=== PATIENT | female | born 1940 | race Hispanic/Latino ===

== ENCOUNTER 2017-12-12 02:30 | Emergency (ER) | payer MEDICARE ==
[~2017-12-12] VITALS: Ht 149.9 cm; Wt 79.8 kg
[~2017-12-12 02:30] MED LIST: CARAFATE1 GM; CELEBREX200 MG; LIPITOR; MEDROL2 MG; NEXIUM; SYNTHROID; Z.0.ATIVAN0.5 MG PO; Z.0.LIPITOR20 MG PO; Z.0.NEXIUM40 MG PO; Z.0.SYNTHROID75 MCG PO; Z.0.ZETIA10 MG PO; ZETIA
[2017-12-12] MEDS ORDERED: FAMOTIDINE 20 MG/2 ML VIAL IV STA (02:42)
[2017-12-12] MEDS ORDERED: DIPHENHYDRAMINE HCL INJ 50 MG/ML VIAL IV ONE (02:45)
[2017-12-12] MEDS ORDERED: METHYLPREDNISOLONE SOD SUCC 125 MG/2ML VIAL IV ONE (02:45)
[2017-12-12 04:44] VITALS: BP 128/74
== END 2017-12-12 05:04 | disposition home or self-care (01) ==
LOC: ER 02:30
DX: L50.0 Allergic urticaria (principal); T37.0X4A Poisoning by sulfonamides, undetermined, initial encounter; K21.9 Gastro-esophageal reflux disease without esophagitis; E03.9 Hypothyroidism, unspecified; E78.5 Hyperlipidemia, unspecified
CPT/HCPCS: 96374; 96376; 99283; J1200; J2930

== ENCOUNTER 2018-01-01 14:22 | Inpatient (IN) | payer MEDICARE ==
[~2018-01-01] VITALS: Ht 149.9 cm; Wt 73.5 kg
--- OUTSIDE RECORDS SUMMARY | 2018-01-01 14:25 | XMS REPORT ---
Author [facility] Address Unknown Phone Unavailable Care Team Providers Care Clinical Quality Rn Name Role Phone CESAR HERNANDEZ Unavailable Unavailable Problems This patient has no known problems. Allergies, Adverse Reactions, Alerts This patient has no known allergies or adverse reactions. Medications This patient has no known medications. Results Test Description Test Time Test Comments Text Results Atomic Results Result Comments CHEST 2 VIEWS [facility] [address] [address] Patient Name: DANNIELLE PALMER MR #: [id number] : 1940 Age/Sex: 77/F Req #: [id number] Adm Physician: Ordered by: CESAR HERNANDEZ MD Report #: [id number] Location: [facility] Room/Bed: Procedure: [id number] 0050 DX/CHEST 2 VIEWS Exam Date: 10/23/17 Exam Time : 1220 REPORT STATUS: Signed PROCEDURE: Frontal and lateral views of the chest. COMPARISON: Chest x-ray of 04/05/2015. INDICATIONS: BRONCHITIS FINDINGS: Lines/tubes: None. Lungs: The lungs are well inflated and clear. Mild bilateral peribronchial cuffing. There is no evidence of pneumonia or pulmonary edema. Pleura: There is no pleural effusion or pneumothorax. Heart and mediastinum: The heart and the mediastinum are normal. Atherosclerotic calcifications in the aorta. Bones: No acute bony abnormality. Stable heterotopic bone formation around the right glenohumeral joint, likely from previous right humeral head fracture deformity. IMPRESSION: Mild bilateral peribronchial cuffing, which can be seen in viral etiology or reactive airway. Dictated by: Jessica Cabral M.D. on 10/23/2017 at 13:03 Electronically approved by: Jessica Cabral M.D. on 10/23/2017 at 13:03 Dictated By: JESSICA CABRAL MD 1303 Transcribed By: CHANTELLE on 10/23/17 1303 COPY TO: CESAR HERNANDEZ MD
[2018-01-01] MEDS ORDERED: CEFTRIAXONE SOD 1 GM VIAL IV ONE (15:00)
[2018-01-01] MEDS ORDERED: ONDANSETRON HCL INJ 2 MG/ML VIAL IV STA (15:00)
[2018-01-01] MEDS ORDERED: SODIUM CHLORIDE 0.9% 500ML 500 ML IV STA (15:00)
[2018-01-01] MEDS ORDERED: MORPHINE SULFATE 4 MG/ML SYR IV STA (15:00)
[2018-01-01] MEDS ORDERED: IBUPROFEN 600 MG TAB PO STA (15:02)
[2018-01-01] MEDS ORDERED: IBUPROFEN 600 MG TAB ONE (15:09)
[2018-01-01 15:13] LABS: HEMOGLOBIN 13.4 g/dL (12.0-16.0); LYMPHOCYTES # (AUTO) 0.8 (1.0-3.2); MEAN CORPUSCULAR HEMOGLOBIN 32.4 pg (28-32); MEAN CORPUSCULAR HGB CONC 33.5 g/dL (31-35); MEAN CORPUSCULAR VOLUME 96.6 fL (81-99); MONOCYTES # (AUTO) 0.9 (0.2-0.8); MONOCYTES % 15.4 % (4.4-11.3); NEUTROPHILS # (AUTO) 4.2 (2.1-6.9); NEUTROPHILS % 70.4 % (38.7-80.0); PLATELET COUNT 156 x10e3/uL (140-360); RED BLOOD COUNT 4.14 x10e6/uL (3.6-5.1)
[2018-01-01 15:26] LABS: ALBUMIN 3.1 g/dL (3.5-5.0); ALBUMIN/GLOBULIN RATIO 0.9 (0.8-2.0); ANION GAP 16.5 mmol/L (8-16); CALCIUM 7.9 mg/dL (8.4-10.2); CREATININE, SERUM 2.24 mg/dL (0.57-1.11); POTASSIUM 3.5 mmol/L (3.5-5.1)
[2018-01-01 15:32] LABS: CREATINE KINASE MB 2.7 ng/mL (0-5.0)
--- NOTE | 2018-01-01 16:06 | Diagnostic Imaging Report ---
PROCEDURE: CT ABDOMEN AND PELVIS WITHOUT CONTRAST TECHNIQUE: The abdomen and pelvis were scanned utilizing a multidetector helical scanner from the diaphragm to the lesser trochanter after the oral administration of water. No IV contrast was administered per renal stone protocol Coronal and sagittal multiplanar reformations were obtained. COMPARISON: None. INDICATIONS: LEFT FLANK PAIN FINDINGS: ABSENCE OF INTRAVENOUS CONTRAST DECREASES SENSITIVITY FOR DETECTION OF FOCAL LESIONS AND VASCULAR PATHOLOGY. LOWER THORAX: Mild dependent atelectasis. HEPATOBILIARY: Hepatic steatosis. No focal lesions. No biliary ductal dilation. Layering hyperdensity in the dependent portion of the gallbladder lumen likely represents a combination of tiny gallstones and sludge. No wall thickening or pericholecystic fluid. SPLEEN: No splenomegaly. PANCREAS: No focal masses or ductal dilatation. Fatty replacement. ADRENALS: No adrenal nodules. KIDNEYS/URETERS: 0.9 x 0.7 x 0.9 cm calculus in the left renal pelvis, with mild peripelvic stranding, however, no hydronephrosis or hydroureter. No other renal or any ureteral calculi. No renal contour abnormalities. PELVIC ORGANS/BLADDER: Bladder is unremarkable. No bladder calculi. Uterus is unremarkable. No adnexal masses. PERITONEUM / RETROPERITONEUM: No free air or fluid. LYMPH NODES: No lymphadenopathy. VESSELS: Atherosclerotic calcification of the abdominal aorta and iliac vessels. GI TRACT: No dilation or obstruction. Descending and sigmoid colon diverticulosis, without diverticulitis. Appendix is well identified, and normal in caliber. BONES AND SOFT TISSUES: No aggressive lytic lesion. Moderate multilevel degenerative disc changes in the lower lumbosacral spine, worse at L3-L4, and L4-L5. 3.7 x 4.8 x 4.0 cm fat-containing umbilical hernia. IMPRESSION: 1. 0.9 cm calculus in the left renal pelvis, with mild peripelvic stranding, however, no hydronephrosis or hydroureter. No other renal or any ureteral calculi. No bladder calculi. 2. Hepatic steatosis. 3. Findings in the gallbladder likely represent a combination of tiny gallstones and sludge. No CT evidence of cholecystitis. 4. Descending and sigmoid colon diverticulosis, without diverticulitis. Kushal Lr M.D. Dictated by: Kushal Lr M.D. on 01/01/2018 at 16:06 Electronically approved by: Kushal Lr M.D. on 01/01/2018 at 16:06
[2018-01-01 18:23] LABS: BILIRUBIN,URINE 1+ (NEGATIVE); CLARITY,URINE HAZY (CLEAR); COLOR,URINE YELLOW (YELLOW); KETONES,URINE TRACE (NEGATIVE); LEUKOCYTE ESTERASE ,URINE 2+ (NEGATIVE); NITRITE,URINE NEGATIVE (NEGATIVE); PROTEIN,URINE DIPSTICK 1+ (NEGATIVE); URINE UROBILINOGEN 0.2 mg/dL (0.2 - 1)
[2018-01-01 18:36] LABS: EPITHELIAL CELLS,URINE FEW /LPF
[2018-01-01] MEDS ORDERED: ONDANSETRON HCL INJ 2 MG/ML VIAL IV PRN (18:45)
[2018-01-01] MEDS ORDERED: LISINOPRIL2.5 MG PO (18:49)
[2018-01-01] MEDS: CEFTRIAXONE SOD 1 GM VIAL IV SCH (19:06)
[2018-01-01] MEDS: SODIUM CHLORIDE 0.9% 1000ML 1,000 ML IV SCH (19:06)
[2018-01-01] MEDS: ACETAMINOPHEN 325 MG TAB PO PRN (20:00)
[2018-01-01 21:14] VITALS: BP 107/51
[2018-01-01 22:21] VITALS: BP 107/51
[2018-01-01] MEDS ORDERED: PNEUMOCOCCAL VACCINE POLYVALENT 23 MCG/0.5 ML VIAL IM ONE (23:00)
[2018-01-01] MEDS ORDERED: INFLUENZA VIRUS VAC SPLIT INJ 0.5 ML SYR IM ONE (23:00)
[2018-01-02] VITALS (7 sets, daily range): BP systolic 102–146; BP diastolic 53–69
[2018-01-02] MEDS: SODIUM CHLORIDE 0.9% 1000ML 1,000 ML IV SCH ×3 (03:30→21:10)
[2018-01-02] MEDS ORDERED: ADVAIR 250-501 EACH (04:53)
[2018-01-02] MEDS ORDERED: SALMETEROL/FLUTICASONE 250/50 INH SCH (05:15)
[2018-01-02 06:02] LABS: EOSINOPHILS % 0.2 % (0.0-6.0); HEMATOCRIT 37.2 % (34.2-44.1); HEMOGLOBIN 12.3 g/dL (12.0-16.0); LYMPHOCYTES # (AUTO) 1.3 (1.0-3.2); LYMPHOCYTES % 29.5 % (18.0-39.1); MEAN CORPUSCULAR HEMOGLOBIN 32.1 pg (28-32); MEAN CORPUSCULAR HGB CONC 33.1 g/dL (31-35); MEAN CORPUSCULAR VOLUME 97.1 fL (81-99); MONOCYTES # (AUTO) 0.7 (0.2-0.8); MONOCYTES % 14.3 % (4.4-11.3); NEUTROPHILS # (AUTO) 2.5 (2.1-6.9); NEUTROPHILS % 55.8 % (38.7-80.0); PLATELET COUNT 143 x10e3/uL (140-360); RED BLOOD COUNT 3.83 x10e6/uL (3.6-5.1); RED CELL DISTRIBUTION WIDTH 12.9 % (11.7-14.4)
[2018-01-02] MEDS: LEVOTHYROXINE SODIUM 75 MCG TAB PO SCH (06:09)
[2018-01-02 06:23] LABS: ALBUMIN 2.6 g/dL (3.5-5.0); ALBUMIN/GLOBULIN RATIO 1.1 (0.8-2.0); ANION GAP 14.6 mmol/L (8-16); CALCIUM 7.4 mg/dL (8.4-10.2); CREATININE, SERUM 2.09 mg/dL (0.57-1.11); POTASSIUM 3.6 mmol/L (3.5-5.1)
--- NOTE | 2018-01-02 06:36 | Diagnostic Imaging Report ---
CHEST SINGLE (PORTABLE), 01/02/2018 5:04 AM Technique: CHEST SINGLE (PORTABLE) Comparison: None available. Clinical history: Wheezing Findings: Heart/mediastinum: Normal for portable lordotic technique. Lungs/pleural spaces: No consolidation or edema. No effusion or pneumothorax. Bones: Chronic appearing deformity of the proximal right humerus. Impression: 1. Lines/Tubes: None 2. No acute abnormality. Signed by: Dr Christi Rothman MD on 01/02/2018 6:33 AM
[2018-01-02 06:39] LABS: CREATINE KINASE MB 6.4 ng/mL (0-5.0)
[2018-01-02] MEDS: ALBUTEROL/IPRATROPIUM 3 ML NEB NEB SCH ×5 (07:18→23:17)
[2018-01-02] MEDS: SUCRALFATE 1 GM TAB PO SCH ×4 (07:30→21:10)
[2018-01-02] MEDS: PANTOPRAZOLE SOD 40 MG TABEC PO SCH (07:30)
[2018-01-02] MEDS ORDERED: ESOMEPRAZOLE MAG TRIHYDRATE PO SCH (09:00)
[2018-01-02] MEDS ORDERED: NON-FORMULARY MEDICATION (Esomeprazole Mag Trihydrate (Nexium) 40 MG) PO SCH (09:00)
[2018-01-02] MEDS: LISINOPRIL 2.5 MG TAB PO SCH (09:00)
[2018-01-02] MEDS: SALMETEROL/FLUTICASONE 250/50 INH SCH ×2 (09:00→17:00)
[2018-01-02] MEDS ORDERED: DEXAMETHASONE SOD PHOS INJ 4 MG/ML VIAL ONE (13:33)
[2018-01-02] MEDS ORDERED: PROPOFOL IV EMULSION 10 MG/ML 20 ML VIAL ONE (13:33)
[2018-01-02] MEDS ORDERED: ONDANSETRON HCL INJ 2 MG/ML VIAL ONE (13:33)
[2018-01-02] MEDS ORDERED: LIDOCAINE HCL 2% LOCAL INJ 5 ML SDV VIAL INJ ONE (13:33)
[2018-01-02] MEDS ORDERED: SEVOFLURANE INHAL SOLN 250 ML PEN BTL ONE (13:33)
[2018-01-02 14:16] LABS: CREATINE KINASE MB 4.9 ng/mL (0-5.0)
[2018-01-02] MEDS ORDERED: FENTANYL CITRATE/PF 100MCG/2 ML INJ ONE (14:43)
[2018-01-02] MEDS ORDERED: ATORVASTATIN 20 MG TAB PO SCH (21:00)
[2018-01-02] MEDS: CEFTRIAXONE SOD 1 GM VIAL IV SCH (21:10)
[2018-01-02] MEDS: ACETAMINOPHEN 325 MG TAB PO PRN (21:23)
[2018-01-03 00:40] VITALS: BP 115/59
[2018-01-03] MEDS: ALBUTEROL/IPRATROPIUM 3 ML NEB NEB SCH ×2 (02:23→07:00)
[2018-01-03] MEDS: SODIUM CHLORIDE 0.9% 1000ML 1,000 ML IV SCH (04:46)
[2018-01-03] MEDS: LEVOTHYROXINE SODIUM 75 MCG TAB PO SCH (04:47)
[2018-01-03 05:19] VITALS: BP 118/60
[2018-01-03 06:34] LABS: HEMATOCRIT 33.7 % (34.2-44.1); HEMOGLOBIN 11.3 g/dL (12.0-16.0); LYMPHOCYTES # (AUTO) 0.5 (1.0-3.2); LYMPHOCYTES % 13.6 % (18.0-39.1); MEAN CORPUSCULAR HEMOGLOBIN 32.7 pg (28-32); MEAN CORPUSCULAR HGB CONC 33.5 g/dL (31-35); MEAN CORPUSCULAR VOLUME 97.4 fL (81-99); MONOCYTES # (AUTO) 0.3 (0.2-0.8); MONOCYTES % 8.7 % (4.4-11.3); NEUTROPHILS # (AUTO) 2.7 (2.1-6.9); NEUTROPHILS % 77.4 % (38.7-80.0); PLATELET COUNT 129 x10e3/uL (140-360); RED BLOOD COUNT 3.46 x10e6/uL (3.6-5.1); RED CELL DISTRIBUTION WIDTH 13.2 % (11.7-14.4)
[2018-01-03 06:59] LABS: ANION GAP 15.5 mmol/L (8-16); CALCIUM 7.7 mg/dL (8.4-10.2); CREATININE, SERUM 1.03 mg/dL (0.57-1.11); POTASSIUM 3.5 mmol/L (3.5-5.1)
[2018-01-03] MEDS: SUCRALFATE 1 GM TAB PO SCH ×2 (07:45→11:12)
[2018-01-03] MEDS: PANTOPRAZOLE SOD 40 MG TABEC PO SCH (07:45)
[2018-01-03 08:00] VITALS: BP 160/74
[2018-01-03] MEDS: LISINOPRIL 2.5 MG TAB PO SCH (08:30)
[2018-01-03] MEDS: ACETAMINOPHEN 325 MG TAB PO PRN (08:41)
[2018-01-03] MEDS ORDERED: PHENAZOPYRIDINE HCL 100 MG TAB PO SCH (09:00)
[2018-01-03] MEDS ORDERED: TYLENOL WITH C1 EACH PO ×2 (12:03→12:05)
[2018-01-03] MEDS ORDERED: CEFTIN250 MG/5 M (12:08)
[2018-01-03] MEDS ORDERED: CEFUROXIME250 MG PO (12:09)
[2018-01-30] MEDS ORDERED: TYLENOL WITH C1 EACH PO (07:44)
--- NOTE | 2018-02-18 06:54 | Discharge Summary ---
DISCHARGE DIAGNOSES 1. Urinary tract infection. 2. Left renal kidney stone. 3. Chronic kidney disease, stage 3. 4. Hypothyroidism. HISTORY OF PRESENT ILLNESS AND HOSPITAL COURSE: Patient is a lady who presented with left leg pain. Was found have a UTI and a large kidney stone of about 8 mm with some hydronephrosis. She was brought in and seen by Dr. Cunningham who performed a left stent without any complications. Did significantly better after the stent. At the time of discharge, she was able to be discharged home with p.o. antibiotics and follow up with him in approximately 2 weeks. Please see hospital chart for full details. TL PALENCIA MD Job#: [id number] RI
--- NOTE | 2018-03-08 23:41 | Operative Report ---
DATE OF PROCEDURE: January 02, 2018 PREOPERATIVE DIAGNOSES 1. Left hydronephrosis due to stone. 2. Urinary tract infection. 3. Microscopic hematuria. 4. Mixed-type urinary incontinence. POSTOPERATIVE DIAGNOSES 1. Left hydronephrosis due to stone. 2. Urinary tract infection. 3. Microscopic hematuria. 4. Mixed-type urinary incontinence. 5. Grade-2 cystocele. 6. Severe grade-4 rectocele. 7. Atrophic vaginitis. OPERATIONS PERFORMED 1. Cystourethroscopy with bilateral ureteral catheterization and retrograde ureteropyelography (separate procedure performed for urinary tract and microscopic hematuria). 2. Interpretation of retrograde ureteropyelography. 3. Supervision of fluoroscopy. No radiologist present. 4. Pelvic examination under anesthesia. ANESTHESIA: General. COMPLICATIONS: None. CLINICAL SUMMARY: Please refer to consultation dictation from the same date. OPERATIVE PROCEDURE IN DETAIL: Informed consent was verified. Laquita Sinclair was properly identified, taken to the operating room, placed on the cystoscopy table in the supine position. Anesthesia was uneventfully begun. The patient was then carefully, gently repositioned in the dorsal lithotomy position with all pressure points well padded. Her genitalia were prepared and draped in usual sterile fashion. A 22.5-Icelandic cystoscope sheath with obturator in place was atraumatically inserted in patient's urethra and the bladder was drained. Panendoscopy of the bladder revealed no suspicious mucosal lesions, no trabeculations were noted. There were no tumors, no stones, no diverticula. Normally positioned and configured ureteral orifices were identified. A ureteral catheter was used to cannulate the right ureter and retrograde ureteropyelography were performed. It was then inserted in the left ureter and retrograde ureteropyelography was performed. With cystoscopic and fluoroscopic guidance, the left-sided indwelling ureteral stent was then placed. It was coiled in patient's kidney, as well as patient's bladder. The retaining suture was cut short. Interpretation of retrograde ureteropyelography: Contrast was instilled in retrograde fashion bilaterally. The right kidney appeared small, but it was not hydronephrotic. Calices were sharp and delicate. There were no filling defect. There were no stones. Unobstructed drainage was observed fluoroscopically. The left side exhibited filling defect that corresponded to the stone noted on CT. There was hydronephrosis with caliceal blunting. The stent was in good position, coiled in the patient's renal pelvis, as well as patient's bladder at the end of the case. The bladder was noted to have a cystocele with the bladder descent below the symphysis pubis. The patient's bladder was then drained. The cystoscope was withdrawn. Pelvic examination under anesthesia revealed atrophic vaginitis with at least a grade-2 cystocele. There was a severe grade-4 rectocele. No abnormal pelvic masses could be appreciated and there were no obvious mucosal lesions. The patient was then uneventfully reversed from anesthesia and taken to recovery room in stable condition. There were no complications to the procedure. She tolerated the procedure well. Plans will be to follow her during her hospital course and once she is well and completed a long course of antibiotics, to bring her back to the operating room for the next step of stone management, specifically a left ESWL. Job#: [id number]
--- NOTE | 2018-03-09 03:21 | Consultation ---
DATE OF CONSULTATION: January 02, 2018 UNINTELLIGIBLE DICTATION ON MULTIPLE PORTIONS OF THE REPORT UROLOGY CONSULTATION REASON FOR CONSULTATION: Renal colic. HISTORY OF PRESENT ILLNESS: Laquita Sinclair is a 77-year-old woman, who presented to the emergency room with a stone, left renal colic, and left pyelonephritis. Urological consultation was sought for the management. Patient presented to the emergency room with pain. She also reports stress and urge-type urinary incontinence. She also has documented urinary tract infection symptomatology findings. to the operating room for ureteral stenting. PAST MEDICAL AND SURGICAL HISTORY 1. CKD. 2. Hypothyroidism. ALLERGIES: BACTRIM. SOCIAL HISTORY: Patient denies smoking, alcohol, drug use. FAMILY HISTORY: Significant for hypertension. REVIEW OF SYSTEMS: As discussed above in the history of present illness and past medical history, otherwise negative for all systems. PHYSICAL EXAMINATION GENERAL: 77-year-old woman, lying in bed, in no acute distress. VITAL SIGNS: She is currently afebrile. Vital signs are currently stable. She had a temperature of 102.2 upon presentation. ABDOMEN: Soft, nondistended. It is tender in left flank. Without costovertebral angle tenderness. Kidneys are not palpable without hepatosplenomegaly or obvious evidence of hernia. For the remaining physical examination systems, please refer to the admission history and physical on the chart. LABORATORY STUDIES: White blood cell count is 4540, hemoglobin 12.3, platelets are . Creatinine 2.09, calcium was low . Urinalysis negative for , 600 WBCs. ASSESSMENT 1. Left renal colic. 2. Left pyelonephritis. 3. Urinary tract infection. 4. Left ureterolithiasis. 5. History of urinary incontinence. 6. Left hydronephrosis. 7. Leukopenia. 8. Hypocalcemia. 9. Presented with acute renal failure. 10. Microscopic hematuria. PLAN: I posted the patient emergently for cystoscopy and placement of left ureteral stent. Thank you very much for involving us in the care of your patient. We will be happy to follow her along with you, as well as an outpatient. Job#: [id number] CQ
== END 2018-01-03 12:45 | disposition home or self-care (01) | DRG 690 ==
LOC: ER 14:22 → MED/SURG2 18:36
PROVIDERS: ADMIT Internal Medicine; ATTEND Internal Medicine
PROC: BT1FZZZ Fluoroscopy of Left Kidney, Ureter and Bladder (ICD-10-PCS; 2018-01-02)
PROC: 0T778DZ Dilation of Left Ureter with Intraluminal Device, Via Natural or Artificial Opening Endoscopic (ICD-10-PCS; principal; 2018-01-02 15:00)
DX: N13.6 Pyonephrosis (principal); N18.3 Chronic kidney disease, stage 3 (moderate); I12.9 Hypertensive chronic kidney disease with stage 1 through stage 4 chronic kidney disease, or unspecified chronic kidney disease; N81.6 Rectocele; E03.9 Hypothyroidism, unspecified; E78.5 Hyperlipidemia, unspecified; R31.29 Other microscopic hematuria; N39.46 Mixed incontinence; N95.2 Postmenopausal atrophic vaginitis
CPT/HCPCS: 36415; 71045; 74176; 74420; 80048; 80053; 81001; 82550; 82553; 83970; 84484; 84550; 85025; 87086; 94640; 99284; J0696; J1100; J2001; J2405; J7030

== ENCOUNTER → 2018-01-08 | Outpatient (CLI) | payer MEDICARE ==
[~2018-01-08] MED LIST changes: +ADVAIR 250-501 EACH; +CEFTIN250 MG/5 M; +CEFUROXIME250 MG PO; +LISINOPRIL2.5 MG PO; +TYLENOL WITH C1 EACH PO
--- NOTE | 2018-01-08 11:42 | Diagnostic Imaging Report ---
PROCEDURE:X-RAY ABDOMEN - KUB COMPARISON:CT abdomen and pelvis without contrast 01/01/2018. INDICATIONS:CALCULUS OF KIDNEY/STENT PLACEMENT FINDINGS: Interval placement of a left internal ureteral stent. The proximal locking loop projects over the expected region of the left renal pelvis. The distal locking loop projects over the expected region of the urinary bladder to the left of midline. 8mm ovoid calculus lies adjacent to the proximal locking loop of the stent. No suspicious calcifications project over the right renal shadow or expected ureteral course. Bowel gas pattern is nonobstructive. Regional skeletal structures are intact with multilevel degenerative disc changes of the lumbar spine. CONCLUSION: Interval placement of a left internal ureteral stent, appropriately positioned as above, with an 8mm calculus adjacent to the proximal locking loop. Dictated by: Vazquez Snider M.D. on 01/08/2018 at 11:42 Electronically approved by: Vazquez Snider M.D. on 01/08/2018 at 11:42
== END ==
LOC: RAD 10:29
PROVIDERS: ATTEND Urology
DX: N20.0 Calculus of kidney (principal)
CPT/HCPCS: 74018

== ENCOUNTER → 2018-01-30 | Day surgery (SDC) | payer MEDICARE ==
[~2018-01-30] MED LIST changes: +CEFTRIAXONE SOD 1 GM VIAL ONE; +DEXAMETHASONE SOD PHOS INJ 4 MG/ML VIAL ONE; +FENTANYL CITRATE/PF 100MCG/2 ML INJ ONE; +LIDOCAINE HCL 2% LOCAL INJ 5 ML SDV VIAL INJ ONE; +MIDAZOLAM HCL 2 MG/2 ML VIAL ONE; +ONDANSETRON HCL INJ 2 MG/ML VIAL ONE; +PROPOFOL IV EMULSION 10 MG/ML 20 ML VIAL ONE; +SEVOFLURANE INHAL SOLN 250 ML PEN BTL ONE
--- NOTE | 2018-01-30 08:00 | Diagnostic Imaging Report ---
PROCEDURE:X-RAY ABDOMEN - KUB COMPARISON:[facility], DX, ABDOMEN-1VIEW (KUB), 01/08/2018, 10:39. INDICATIONS:PRE OPERATIVE KUB, STONES FINDINGS: Left double-J ureteral stent again noted. Calcification adjacent to the proximal pigtail in the kidney now measures 9-10 mm. No additional stones. There are no dilated loops of bowel to suggest obstruction. There are no masses. There is no evidence of free air. No acute osseous abnormalities are present. Degenerative changes of the spine. CONCLUSION: 1. No acute abdominal abnormality. 2. Stone adjacent to the double-J ureteral stent in the renal pelvis. Arnie Shine D.O. Dictated by: Arnie Shine D.O. on 01/30/2018 at 7:59 Electronically approved by: Arnie Shine D.O. on 01/30/2018 at 7:59
--- NOTE | 2018-03-08 00:48 | Operative Report ---
DATE OF PROCEDURE: January 30, 2018 PREOPERATIVE DIAGNOSIS: Left nephrolithiasis. POSTOPERATIVE DIAGNOSIS: Left nephrolithiasis. OPERATIONS PERFORMED: 1. Staged left extracorporeal shock wave lithotripsy. 2. Supervision of fluoroscopy, no radiologist present. ANESTHESIA: General. COMPLICATIONS: None. CLINICAL SUMMARY: Laquita Sinclair is a 77-year-old woman with nephrolithiasis. She is brought for staged procedure. She is aware of the risks of bleeding, infection, injury to adjacent structures, need for additional procedures, and elected to proceed. OPERATIVE PROCEDURE IN DETAIL: Informed consent was verified. Laquita Sinclair was properly identified, taken to the operating room and placed on the lithotripsy table in the supine position. Anesthesia was uneventfully begun. The patient's left 6-mm stone was localized with biplanar fluoroscopy. A total of 3000 shocks were delivered with excellent fragmentation. The patient was then uneventfully reversed from anesthesia and taken to recovery room in stable condition. There were no complications to the procedure. The patient tolerated the procedure well. Explicit postoperative instructions were given and will plan to bring the patient back to the operating room for cystoscopy, stent removal, left ureteroscopy, and the indicated procedures. Job#: [id number] cc:CESAR HERNANDEZ MD
== END | disposition home or self-care (01) ==
LOC: OR 06:46
PROVIDERS: ATTEND Urology
DX: N20.0 Calculus of kidney (principal); Z96.0 Presence of urogenital implants; I10 Essential (primary) hypertension; K21.9 Gastro-esophageal reflux disease without esophagitis; Z01.810 Encounter for preprocedural cardiovascular examination
CPT/HCPCS: 50590; 74018; 93005; J0696; J1100; J2001; J2250; J2405

== ENCOUNTER → 2018-03-04 | Outpatient (CLI) | payer MEDICARE ==
[~2018-03-04] MED LIST changes: -CEFTRIAXONE SOD 1 GM VIAL ONE; -DEXAMETHASONE SOD PHOS INJ 4 MG/ML VIAL ONE; -FENTANYL CITRATE/PF 100MCG/2 ML INJ ONE; -LIDOCAINE HCL 2% LOCAL INJ 5 ML SDV VIAL INJ ONE; -MIDAZOLAM HCL 2 MG/2 ML VIAL ONE; -ONDANSETRON HCL INJ 2 MG/ML VIAL ONE; -PROPOFOL IV EMULSION 10 MG/ML 20 ML VIAL ONE; -SEVOFLURANE INHAL SOLN 250 ML PEN BTL ONE
--- NOTE | 2018-03-04 13:22 | Diagnostic Imaging Report ---
PROCEDURE:X-RAY ABDOMEN - KUB COMPARISON:[facility], DX, ABDOMEN-1VIEW (KUB), 01/30/2018, 6:57. INDICATIONS:CALCULUS OF KIDNEY FINDINGS: Stable left double-J internal ureteral stent. Nonobstructive bowel gas pattern with moderate amount of retained stool in the colon, which obscures the renal shadows. Stable 1.0-1.1 cm calcific density adjacent to the upper pigtail of the stent. No radiopaque densities project over the right renal shadow or expected course of ureters. Stable pelvic phleboliths. Generalized osteopenia with marked degenerative changes in the lumbosacral spine. Mild degenerative changes in bilateral hip joints and sacroiliac joints. CONCLUSION: Stable 1.0-1.1 cm calculus adjacent to the left double-J internal ureteral stent upper pigtail. No new calcifications overlie the genitourinary system. Kushal Lr M.D. Dictated by: Kushal Lr M.D. on 03/04/2018 at 13:23 Electronically approved by: Kushal Lr M.D. on 03/04/2018 at 13:23
== END ==
LOC: RAD 11:07
PROVIDERS: ATTEND Urology
DX: N20.0 Calculus of kidney (principal)
CPT/HCPCS: 74018

== ENCOUNTER → 2018-03-13 | Day surgery (SDC) | payer MEDICARE ==
[2018-03-11 13:53] LABS: BASOPHILS % 0.5 % (0.0-1.0); EOSINOPHILS # (AUTO) 0.2 (0.0-0.4); EOSINOPHILS % 1.9 % (0.0-6.0); HEMOGLOBIN 13.3 g/dL (12.0-16.0); LYMPHOCYTES # (AUTO) 2.7 (1.0-3.2); LYMPHOCYTES % 31.9 % (18.0-39.1); MEAN CORPUSCULAR HEMOGLOBIN 32.5 pg (28-32); MEAN CORPUSCULAR HGB CONC 32.4 g/dL (31-35); MEAN CORPUSCULAR VOLUME 100.2 fL (81-99); MONOCYTES # (AUTO) 0.9 (0.2-0.8); MONOCYTES % 10.6 % (4.4-11.3); NEUTROPHILS # (AUTO) 4.6 (2.1-6.9); NEUTROPHILS % 54.7 % (38.7-80.0); PLATELET COUNT 197 x10e3/uL (140-360); RED BLOOD COUNT 4.09 x10e6/uL (3.6-5.1); RED CELL DISTRIBUTION WIDTH 12.7 % (11.7-14.4)
[~2018-03-13] MED LIST changes: +CEFTRIAXONE SOD 1 GM VIAL ONE; +DEXAMETHASONE SOD PHOS INJ 4 MG/ML VIAL ONE; +FAMOTIDINE 20 MG/2 ML VIAL IV ONE; +FENTANYL CITRATE/PF 100MCG/2 ML INJ ONE; +GLYCOPYRROLATE INJ 1MG/ 5 ML SYR ONE; +LIDOCAINE HCL 2% LOCAL INJ 5 ML SDV VIAL INJ ONE; +MAGNESIUM/ALUMINUM/SIMETHICONE 30 ML UDC ONE; +METOCLOPRAMIDE HCL 10 MG/2ML VIAL ONE; +MIDAZOLAM HCL 2 MG/2 ML VIAL ONE; +MORPHINE SULFATE 2 MG/ML SYR ONE; +ONDANSETRON HCL INJ 2 MG/ML VIAL ONE; +PHENYLEPHRINE HCL 1% 10 MG/ML VIAL ONE; +PROPOFOL IV EMULSION 10 MG/ML 20 ML VIAL ONE; +ROCURONIUM BROMIDE 10 MG/ML 5ML VIAL ONE; +SEVOFLURANE INHAL SOLN 250 ML PEN BTL ONE; +SUCCINYLCHOLINE 200 MG/10 ML SYR ONE
--- NOTE | 2018-03-13 07:50 | Diagnostic Imaging Report ---
PROCEDURE:X-RAY ABDOMEN - KUB COMPARISON:Patients [facility], DX, ABDOMEN-1VIEW (KUB), 03/04/2018, 12:21. INDICATIONS:PRE OPERATIVE X-RAY FOR ESWL SURGERY FINDINGS: There is a left double-J ureteral stent present. Previously described stone adjacent to the proximal pigtail within the renal pelvis is less well defined and not conspicuous but still probably adjacent to the pigtail. There are no dilated loops of bowel to suggest obstruction. There are no masses. There is no evidence of free air. Degenerative changes of the spine and hips. CONCLUSION: Left renal stone less conspicuous. Arnie Shine D.O. Dictated by: Arnie Shine D.O. on 03/13/2018 at 7:51 Electronically approved by: Arnie Shine D.O. on 03/13/2018 at 7:51
--- NOTE | 2018-04-20 01:34 | Operative Report ---
DATE OF PROCEDURE: March 13, 2018 PREOPERATIVE DIAGNOSIS: Left nephrolithiasis. POSTOPERATIVE DIAGNOSIS: Left nephrolithiasis. OPERATIONS PERFORMED 1. Staged left-sided extracorporeal shockwave lithotripsy. 2. Supervision of fluoroscopy. No radiologist present. ANESTHESIA: General. COMPLICATIONS: None. CLINICAL SUMMARY: Laquita Sinclair is a 77-year-old woman with left nephrolithiasis. She has a stent in place. She was brought for ESWL. She is aware of the risks of bleeding, infection, injury to adjacent structures. She also understands she will need an additional procedure to remove her stent and evaluate for any residual stone burden. She is aware of the risks of bleeding, infection, injury to adjacent structures, need for additional procedures, and elected to proceed. OPERATIVE PROCEDURE IN DETAIL: Informed consent was verified. Laquita Sinclair was properly identified, taken to operating room, placed on the lithotripsy table in the supine position. Anesthesia was uneventfully begun. The patient's 5-mm upper caliceal left-sided stone was localized with biplanar fluoroscopy and a total of 3000 shocks were delivered with excellent fragmentation. The patient was then uneventfully reversed from anesthesia and taken to recovery room in stable condition. There were no complications to the procedure. The patient tolerated the procedure well. Explicit postoperative instructions were given. We will plan on returning the patient to the operating room for a left ureteroscopy with removal of stent. Job#: [id number] CQ cc:CESAR HERNANDEZ MD
== END | disposition home or self-care (01) ==
LOC: OR 06:52
PROVIDERS: ATTEND Urology
DX: N20.0 Calculus of kidney (principal); Z96.0 Presence of urogenital implants; R35.1 Nocturia; Z87.440 Personal history of urinary (tract) infections; I10 Essential (primary) hypertension; N13.30 Unspecified hydronephrosis; E78.6 Lipoprotein deficiency; E03.9 Hypothyroidism, unspecified; K21.9 Gastro-esophageal reflux disease without esophagitis; Z88.2 Allergy status to sulfonamides; Z68.31 Body mass index [BMI] 31.0-31.9, adult
CPT/HCPCS: 36415; 50590; 74018; 85025; J0696; J1100; J2001; J2250; J2270; J2370; J2405; J2765

== ENCOUNTER → 2018-03-20 | Day surgery (SDC) | payer MEDICARE ==
[~2018-03-20] MED LIST changes: +BELLADONNA/OPIUM 60 MG SUPP PR ONE; -CEFTRIAXONE SOD 1 GM VIAL ONE; -FAMOTIDINE 20 MG/2 ML VIAL IV ONE; -GLYCOPYRROLATE INJ 1MG/ 5 ML SYR ONE; +IOPAMIDOL 610MG/1ML 300 MG/ML VIAL IV ONE; -MAGNESIUM/ALUMINUM/SIMETHICONE 30 ML UDC ONE; -METOCLOPRAMIDE HCL 10 MG/2ML VIAL ONE; -MORPHINE SULFATE 2 MG/ML SYR ONE; -PHENYLEPHRINE HCL 1% 10 MG/ML VIAL ONE; -ROCURONIUM BROMIDE 10 MG/ML 5ML VIAL ONE; -SUCCINYLCHOLINE 200 MG/10 ML SYR ONE
[2018-03-20] MEDS: CEFTRIAXONE SOD 1 GM VIAL ONE ×2 (11:10→11:12)
[2018-03-20] MEDS: GENTAMICIN 80MG/NS 100 ML 100 ML IV ONE ×2 (11:11→11:13)
--- NOTE | 2018-03-20 11:12 | Diagnostic Imaging Report ---
PROCEDURE:X-RAY ABDOMEN - KUB COMPARISON:Abdomen one view 03/13/2018. INDICATIONS:PREOP - LEFT STENT REMOVAL FINDINGS: There is a non-obstructed bowel-gas pattern. Large amount of retained feces is present in the colon and rectum. Left ureteral stent is in proper position. There are no calcifications projected over the renal shadows, expected course of the ureters or bladder. There are no acute osseous abnormalities. The lung bases are clear. CONCLUSION: Left ureteral stent. Dictated by: Michael Terry M.D. on 03/20/2018 at 11:13 Electronically approved by: Michael Terry M.D. on 03/20/2018 at 11:13
--- NOTE | 2018-05-06 01:59 | Operative Report ---
DATE OF PROCEDURE: March 20, 2018 PREOPERATIVE DIAGNOSES 1. Left nephrolithiasis. 2. Foreign body (left indwelling ureteral stent). POSTOPERATIVE DIAGNOSES 1. Left nephrolithiasis. 2. Foreign body (left indwelling ureteral stent). 3. Dvuz-av-sjkgnvie cystocele. 4. Severe rectocele. 5. Atrophic (senile) vaginitis. OPERATIONS PERFORMED: Note these were all staged procedures as part of a multistage multistep process of managing patient's urolithiasis. 1. Cystourethroscopy with complicated removal of left indwelling ureteral stent (separately performed with separate scope for diagnosis of stent). 2. Repeated and recurrent and multiple left ureteral pyeloscopies with extraction of innumerable kidney stone fragments (separately performed for the nephrolithiasis). 3. Urological services for supervision and interpretation of ureteroscopy. 4. Interpretation of retrograde ureteropyelography. 5. Supervision of fluoroscopy. No radiologist present. 6. Pelvic examination under anesthesia. ANESTHESIA: General. COMPLICATIONS: None. CLINICAL SUMMARY: Laquita Sinclair is 77-year-old woman, who was brought to the operating room previously. She underwent ureteral stenting with in conjunction with stone procedure and is brought to the operating today to hopefully render her stent and stone-free. She is aware of the risks of bleeding, infection, injury to adjacent structures, need for additional procedures, and elected to proceed. OPERATIVE PROCEDURE IN DETAIL: Informed consent was verified. Laquita Sinclair was properly identified, taken to operating room, placed on the cystoscopy table in supine position. Anesthesia was uneventfully begun. The patient was then carefully and gently repositioned in the dorsal lithotomy position with all pressure points well padded. Her genitalia were prepared and draped in usual sterile fashion. A 22.5-Iraqi cystoscope sheath with the visual obturator in place was atraumatically inserted in patient's urethra and bladder was drained. Panendoscopy of the urinary bladder revealed no suspicious gross lesions, no tumors, no stones, and no diverticula. Normally positioned and configured ureteral orifices were identified. There was a stent emerging from the left ureteral orifice with minimal encrustation and minimal inflammation around it. A guidewire was then placed alongside the stent and guided to level of patient's kidney. The stent was then grasped carefully, removed, and discarded. A semirigid ureteroscope was then placed alongside the guidewire up into the left distal ureter. No stone was noted. A secondary guidewire was utilized. When utilizing this, the flexible ureteroscope was then brought up into the patient's kidney. Panendoscopy of the intrarenal collecting system was performed revealing an innumerable, small stone fragments. We performed a repeated maneuver, where we grasped several stones of the tipless basket and atraumatically extracted it. We then utilized a double-lumen ureteral catheter to replace the secondary guidewire and performed yet another ureteroscopy. This procedure was performed innumerable times and significant amount of small stone fragments were removed. Once only fine sand remained that was too small to be grasped by the basket, we completed the procedure. The patient's bladder was drained and cystoscope withdrawn. Interpretation retrograde ureteropyelography: Contrast was instilled in retrograde fashion via the ureteroscope. There was chronic-appearing hydronephrosis. There was calyceal blunting noted throughout. No obvious filling defects could be identified fluoroscopically. At the end of the procedures, unobstructed drainage was observed fluoroscopically. Pelvic examination under anesthesia revealed a grade-1 to 2 cystocele. There was severe grade-4 rectocele. There was atrophic (senile) vaginitis and no abnormal palpable pelvic masses could be appreciated. The patient was then uneventfully reversed from anesthesia and taken to recovery room in stable condition. There was no complication to the procedure. She tolerated the procedure well. Explicit postoperative instructions were given. Will follow the patient up in the office. Job#: [id number] cc:CESAR HERNANDEZ MD
== END | disposition home or self-care (01) ==
LOC: OR 09:14
PROVIDERS: ATTEND Urology
DX: N20.0 Calculus of kidney (principal); Z46.6 Encounter for fitting and adjustment of urinary device; N13.30 Unspecified hydronephrosis; N81.10 Cystocele, unspecified; N81.6 Rectocele; N95.2 Postmenopausal atrophic vaginitis; I10 Essential (primary) hypertension; E03.9 Hypothyroidism, unspecified; K21.9 Gastro-esophageal reflux disease without esophagitis
CPT/HCPCS: 52352; 74018; 74420; 88300; C1766; J0696; J1100; J1580; J2001; J2250; J2405; Q9967

== ENCOUNTER 2018-08-25 01:46 | Emergency (ER) | payer MEDICARE ==
[~2018-08-25] VITALS: Ht 149.9 cm; Wt 73.5 kg
[~2018-08-25 01:46] MED LIST changes: -BELLADONNA/OPIUM 60 MG SUPP PR ONE; -DEXAMETHASONE SOD PHOS INJ 4 MG/ML VIAL ONE; -FENTANYL CITRATE/PF 100MCG/2 ML INJ ONE; -IOPAMIDOL 610MG/1ML 300 MG/ML VIAL IV ONE; -LIDOCAINE HCL 2% LOCAL INJ 5 ML SDV VIAL INJ ONE; -MIDAZOLAM HCL 2 MG/2 ML VIAL ONE; -ONDANSETRON HCL INJ 2 MG/ML VIAL ONE; -PROPOFOL IV EMULSION 10 MG/ML 20 ML VIAL ONE; -SEVOFLURANE INHAL SOLN 250 ML PEN BTL ONE
[2018-08-25] MEDS ORDERED: PANTOPRAZOLE 40 MG 10ML VIAL IV STA ×2 (02:26→05:15)
--- NOTE | 2018-08-25 03:25 | Diagnostic Imaging Report ---
EXAM: ABDOMEN ACUTE SERIES W/PA CXR, PA view of the chest supine and erect abdomen INDICATION: Generalized abdominal pain, discomfort COMPARISON: None FINDINGS: LINES/TUBES: None LUNGS: No consolidations or edema. PLEURA: No effusions or pneumothorax. HEART AND MEDIASTINUM: Normal size and contour. BOWEL PATTERN: Non-obstructed bowel gas pattern. BONES AND SOFT TISSUES: No acute bone findings. No abnormal calcifications. IMPRESSION: No acute thoracic abnormality. No evidence for bowel obstruction. Moderate amount of retained stool. Signed by: Dr. Estrella Vaughn M.D. on 08/25/2018 3:21 AM
[2018-08-25 03:28] LABS: BASOPHILS % 0.3 % (0.0-1.0); EOSINOPHILS # (AUTO) 0.1 (0.0-0.4); EOSINOPHILS % 0.6 % (0.0-6.0); HEMATOCRIT 42.1 % (34.2-44.1); HEMOGLOBIN 13.5 g/dL (12.0-16.0); LYMPHOCYTES # (AUTO) 2.2 (1.0-3.2); LYMPHOCYTES % 19.9 % (18.0-39.1); MEAN CORPUSCULAR HGB CONC 32.1 g/dL (31-35); MEAN CORPUSCULAR VOLUME 99.8 fL (81-99); MONOCYTES % 9.6 % (4.4-11.3); NEUTROPHILS # (AUTO) 7.5 (2.1-6.9); NEUTROPHILS % 69.3 % (38.7-80.0); PLATELET COUNT 190 x10e3/uL (140-360); RED BLOOD COUNT 4.22 x10e6/uL (3.6-5.1); RED CELL DISTRIBUTION WIDTH 13.1 % (11.7-14.4)
[2018-08-25 03:35] LABS: INR 0.87; PARTIAL THROMBOPLASTIN TIME 26.9 seconds (23.8-35.5); PROTHROMBIN TIME 12.7 seconds (11.9-14.5)
[2018-08-25 03:42] LABS: ALANINE AMINOTRANSFERASE 17 IU/L (0-55); ALBUMIN 4.1 g/dL (3.5-5.0); ALBUMIN/GLOBULIN RATIO 1.5 (0.8-2.0); ALKALINE PHOSPHATASE 97 IU/L (40-150); BLOOD UREA NITROGEN 19 mg/dL (7-26); BUN/CREATININE RATIO 19 (6-25); CHLORIDE 104 mmol/L (98-107); CREATINE KINASE 117 IU/L (29-168); CREATININE, SERUM 0.98 mg/dL (0.57-1.11); EST GLOMERULAR FILTRATION RATE 55 ML/MIN (60-); GLUCOSE 113 mg/dL (74-118); MAGNESIUM 2.1 MG/DL (1.3-2.1); POTASSIUM 3.8 mmol/L (3.5-5.1); SODIUM 139 mmol/L (136-145)
[2018-08-25 03:46] LABS: CALCIUM 9.7 mg/dL (8.4-10.2)
[2018-08-25 03:52] LABS: BILIRUBIN,URINE NEGATIVE (NEGATIVE); CLARITY,URINE CLEAR (CLEAR); COLOR,URINE YELLOW (YELLOW); KETONES,URINE NEGATIVE (NEGATIVE); LEUKOCYTE ESTERASE ,URINE NEGATIVE (NEGATIVE); NITRITE,URINE NEGATIVE (NEGATIVE); PROTEIN,URINE DIPSTICK NEGATIVE (NEGATIVE); URINE UROBILINOGEN 0.2 mg/dL (0.2 - 1)
[2018-08-25 03:59] LABS: BACTERIA,URINE FEW /HPF; EPITHELIAL CELLS,URINE FEW /LPF
[2018-08-25 04:02] LABS: THYROID STIMULATING HORMONE 0.905 uIU/mL (0.350-4.940)
[2018-08-25 04:03] LABS: ANION GAP 13.8 mmol/L (8-16); CARBON DIOXIDE 25 mmol/L (22-32)
== END 2018-08-25 05:56 | disposition home or self-care (01) ==
LOC: ER 01:46
DX: F41.1 Generalized anxiety disorder (principal); N30.01 Acute cystitis with hematuria; K59.00 Constipation, unspecified
CPT/HCPCS: 36415; 74022; 80053; 81001; 82550; 82553; 83735; 84443; 84484; 85025; 85610; 85730; 87086; 93005; 99284

== ENCOUNTER → 2018-10-16 | Outpatient (CLI) | payer MEDICARE ==
--- NOTE | 2018-10-16 14:47 | Diagnostic Imaging Report ---
Exam: Right knee 3 views History: Fall one month ago, pain Comparison: None. Findings: The bones are diffusely osteopenic. No acute, displaced fracture or dislocation. Dystrophic meniscal calcification. Advanced tricompartmental joint space narrowing with marginal osteophytosis. No significant joint effusion. Atherosclerotic vascular calcifications. Impression: No acute osseous abnormality. 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 Signed by: Dr. Vazquez Snider M.D. on 10/16/2018 2:43 PM
--- NOTE | 2018-10-16 14:50 | Diagnostic Imaging Report ---
Exam: Left humerus, 2 views, left shoulder, 2 views History: Contusion of shoulder Comparison: None. Findings: Humerus: No acute, displaced fracture or dislocation. Dystrophic soft tissue calcification in the soft tissues lateral to the distal diaphysis of the humerus. Partially visualized elbow joint space is well-maintained. Shoulder: No acute, displaced fracture or dislocation. Mild degenerative changes of the acromioclavicular and glenohumeral joint. Soft tissues are unremarkable. Partially visualized left hemithorax is well aerated. Tortuosity of the thoracic aorta with atherosclerotic calcification. Impression: No acute osseous abnormality. Mild acromioclavicular and glenohumeral degenerative joint disease. Signed by: Dr. Vazquez Snider M.D. on 10/16/2018 2:47 PM
== END ==
LOC: RAD 13:57
PROVIDERS: ATTEND Family Medicine
DX: S40.012A Contusion of left shoulder, initial encounter (principal); M17.11 Unilateral primary osteoarthritis, right knee

== ENCOUNTER → 2018-10-26 | Outpatient (CLI) | payer MEDICARE ==
--- NOTE | 2018-10-26 11:21 | Diagnostic Imaging Report ---
EXAMINATION: PA and lateral views of the chest. COMPARISON: None CLINICAL HISTORY: Cough and weakness DISCUSSION: Lines/tubes: None. Lungs: The lungs are well inflated and clear. No pneumonia or pulmonary edema. Pleura: No pleural effusion or pneumothorax. Heart and mediastinum: The cardiomediastinal silhouette is normal. Bones and soft tissues: No acute bony abnormalities. IMPRESSION: No acute cardiopulmonary abnormalities. Signed by: Dr. Dickson [place] M.D. on 10/26/2018 11:18 AM
== END ==
LOC: RAD 10:46
PROVIDERS: ATTEND Family Medicine
DX: R05 Cough (principal)
CPT/HCPCS: 71046

== ENCOUNTER 2018-11-12 13:48 | Observation (INO) | payer MEDICARE ==
[~2018-11-12] VITALS: Ht 149.9 cm; Wt 80.8 kg
[2018-11-12] MEDS: PANTOPRAZOLE SOD 40 MG TABEC PO SCH ×2 (14:10→22:15)
[2018-11-12] MEDS: SODIUM CHLORIDE 0.9% 1000ML 1,000 ML IV SCH (14:20)
--- NOTE | 2018-11-12 14:25 | NUR ---
Recvd patient as direct admit, assisted her to bed, skin is intact, denies any pain, no distress noted, on O2, Family at bed side, keep monitoring
[2018-11-12] MEDS ORDERED: GUAIFENESIN 200 MG/10 ML UDC PO PRN (14:45)
[2018-11-12 16:04] LABS: BASOPHILS % 0.3 % (0.0-1.0); EOSINOPHILS % 0.1 % (0.0-6.0); HEMATOCRIT 38.6 % (34.2-44.1); HEMOGLOBIN 12.6 g/dL (12.0-16.0); LYMPHOCYTES # (AUTO) 0.5 (1.0-3.2); LYMPHOCYTES % 7.2 % (18.0-39.1); MEAN CORPUSCULAR HEMOGLOBIN 32.8 pg (28-32); MEAN CORPUSCULAR HGB CONC 32.6 g/dL (31-35); MEAN CORPUSCULAR VOLUME 100.5 fL (81-99); MONOCYTES # (AUTO) 0.6 (0.2-0.8); MONOCYTES % 8.6 % (4.4-11.3); NEUTROPHILS % 83.5 % (38.7-80.0); PLATELET COUNT 113 x10e3/uL (140-360); RED BLOOD COUNT 3.84 x10e6/uL (3.6-5.1); RED CELL DISTRIBUTION WIDTH 13.3 % (11.7-14.4)
[2018-11-12] MEDS: LEVOFLOXACIN 500MG/D5W 100ML 100 ML IV SCH (16:12)
[2018-11-12 16:21] LABS: ALANINE AMINOTRANSFERASE 17 IU/L (0-55); ALBUMIN 3.3 g/dL (3.5-5.0); ALBUMIN/GLOBULIN RATIO 1.4 (0.8-2.0); ALKALINE PHOSPHATASE 76 IU/L (40-150); ANION GAP 12.6 mmol/L (8-16); BLOOD UREA NITROGEN 15 mg/dL (7-26); BUN/CREATININE RATIO 19 (6-25); CALCIUM 8.6 mg/dL (8.4-10.2); CARBON DIOXIDE 22 mmol/L (22-29); CHLORIDE 108 mmol/L (98-107); CREATININE, SERUM 0.79 mg/dL (0.57-1.11); EST GLOMERULAR FILTRATION RATE > 60 ML/MIN (60-); GLUCOSE 94 mg/dL (74-118); POTASSIUM 3.6 mmol/L (3.5-5.1); SODIUM 139 mmol/L (136-145)
[2018-11-12 16:32] VITALS: BP 174/78
[2018-11-12 17:07] LABS: LYMPHOCYTES % (MANUAL) 5 % (19-48); MONOCYTES % (MANUAL) 8 % (3.4-9.0); NEUTROPHILS % (MANUAL) 85 % (40-74)
[2018-11-12 17:08] LABS: PLATELET ESTIMATE SLIGHTLY DECREASED; RBC MORPHOLOGY COMMENT NORMAL
[2018-11-12] MEDS ORDERED: ACETAMINOPHEN/CODEINE 300MG - 30MG TAB PO PRN (17:15)
[2018-11-12 17:22] LABS: BILIRUBIN,URINE NEGATIVE (NEGATIVE); CLARITY,URINE SL CLOUDY (CLEAR); COLOR,URINE YELLOW (YELLOW); KETONES,URINE NEGATIVE (NEGATIVE); LEUKOCYTE ESTERASE ,URINE NEGATIVE (NEGATIVE); NITRITE,URINE NEGATIVE (NEGATIVE); PROTEIN,URINE DIPSTICK NEGATIVE (NEGATIVE); URINE UROBILINOGEN 0.2 mg/dL (0.2 - 1)
[2018-11-12 17:31] LABS: BACTERIA,URINE MODERATE /HPF; EPITHELIAL CELLS,URINE MODERATE /LPF; WBC,URINE (MAN) 0-5 /HPF (0-5)
[2018-11-12 17:32] LABS: MUCUS,URINE MODERATE (RARE)
[2018-11-12] MEDS ORDERED: ACETAMINOPHEN 325 MG TAB PO PRN (19:00)
--- NOTE | 2018-11-12 19:00 | NUR ---
Received change of shift report from AM nurse. Walking rounds completed.
--- NOTE | 2018-11-12 19:18 | History and Physical ---
The patient is a 60-year-old lady with history of bronchitis, failed outpatient treatment for the last 2 weeks. The patient is admitted for shortness of breath and also wheezing and failed bronchitis treatment HISTORY OF PRESENTING ILLNESS: The patient was in her usual state of health until about 2 weeks ago the patient was seen by Dr. Haney, her primary care physician. She was given antibiotics and also was given breathing treatments, and the patient continued to get worse, coughing was exacerbated, and the patient also had shortness of breath with coughing with difficulty lying back at nighttime. The patient was on Levaquin at home. The patient admitted today for failed outpatient treatment of bronchitis and also shortness of breath. PAST MEDICAL HISTORY: History of hyperlipidemia, history of reflux esophagitis, history of hypothyroidism, history of hypertension and low back pain too. PAST SURGICAL HISTORY: History of right knee surgery and cataract surgery. FAMILY HISTORY: Positive , cervical cancer in mother and bone cancer in father. SOCIAL HISTORY: No ETOH, no IV drug abuse. No history of smoking either. REVIEW OF SYSTEMS: Negative for chest pain. Positive for shortness of breath. Positive for some nausea, no vomiting, no diarrhea, no constipation, no rectal bleeding, no hematochezia, no hematemesis, no blurry vision. Positive for shortness of breath on exertion and positive for some orthopnea. No PND present. PHYSICAL EXAMINATION GENERAL: The patient is alert and oriented x3. VITAL SIGNS: Afebrile. Pulse of 92, respirations of 21, pulse oximetry 99%. The patient is on 2 liters per nasal cannula. HEENT: Normocephalic, atraumatic. Pupils react to light and accommodation. CVS: S1 and S2 normal. Regular rhythm. ABDOMEN: Nontender and nondistended. LUNGS: Positive for bilateral rhonchi and inspiratory wheezes present. EXTREMITIES: No cyanosis, clubbing or edema. LABORATORY DATA: Initial white count was 7.18, neutrophil count 83.5. Chemistries: Sodium 139, potassium 3.6, chloride 109, total protein 5.7 and GFR was above 60. ASSESSMENT: Chronic bronchitis. PLAN: Will give the patient some Solu-Medrol 80 mg twice a day, then taper off. A Xopenex treatment has been started on the patient. Will continue monitoring the patient. Oxygen by nasal cannula. IV antibiotics. Cultures have been assessed too. Further recommendations depending on clinical course. The patient will be here for 1 to 2 days and can be discharged on Albuterol and prednisone. Restart all her home medications. Additional diagnosis includes hypothyroidism, hypertension, hyperlipidemia. Will continue with home medications for that. Job#: [id number] MITCH
--- NOTE | 2018-11-12 19:24 | Diagnostic Imaging Report ---
EXAMINATION: CHEST 2 VIEWS INDICATION: Bronchitis COMPARISON: Chest x-ray 10/26/2018. FINDINGS: PA and lateral views TUBES and LINES: None. LUNGS: Lungs are well inflated. Bilateral peribronchial cuffing. There is no evidence of pneumonia or pulmonary edema. PLEURA: No pleural effusion or pneumothorax. HEART AND MEDIASTINUM: The cardiomediastinal silhouette is unremarkable. There are atherosclerotic calcifications within the aorta. BONES AND SOFT TISSUES: Old right humeral neck fracture deformity. No acute osseous lesion. Soft tissues are unremarkable. UPPER ABDOMEN: No free air under the diaphragm. IMPRESSION: Bilateral peribronchial cuffing, which could represent viral etiology or reactive airway disease. Signed by: Dr. Raúl Cabral M.D. on 11/12/2018 7:20 PM
[2018-11-12] MEDS: LISINOPRIL 2.5 MG TAB PO SCH (19:29)
[2018-11-12 19:38] LABS: BASOPHILS % 0.2 % (0.0-1.0); HEMATOCRIT 39.7 % (34.2-44.1); HEMOGLOBIN 12.7 g/dL (12.0-16.0); LYMPHOCYTES # (AUTO) 0.6 (1.0-3.2); LYMPHOCYTES % 9.4 % (18.0-39.1); MEAN CORPUSCULAR HEMOGLOBIN 32.4 pg (28-32); MEAN CORPUSCULAR VOLUME 101.3 fL (81-99); MONOCYTES # (AUTO) 0.7 (0.2-0.8); MONOCYTES % 9.8 % (4.4-11.3); NEUTROPHILS # (AUTO) 5.3 (2.1-6.9); NEUTROPHILS % 80.3 % (38.7-80.0); PLATELET COUNT 125 x10e3/uL (140-360); RED BLOOD COUNT 3.92 x10e6/uL (3.6-5.1); RED CELL DISTRIBUTION WIDTH 13.4 % (11.7-14.4)
[2018-11-12 20:00] VITALS: BP 135/61
[2018-11-12] MEDS: METHYLPREDNISOLONE SOD SUCC 40 MG/ML VIAL IV SCH (21:52)
[2018-11-12] MEDS: SUCRALFATE 1 GM TAB PO SCH (22:15)
[2018-11-13] VITALS (8 sets, daily range): BP systolic 101–153; BP diastolic 43–68
[2018-11-13] MEDS: LEVALBUTEROL HCL SOLN NEBU 0.63 MG/3 ML NEB INH PRN ×2 (01:00→07:19)
[2018-11-13] MEDS: METHYLPREDNISOLONE SOD SUCC 40 MG/ML VIAL IV SCH ×2 (05:27→16:22)
[2018-11-13] MEDS: LEVOTHYROXINE SODIUM 75 MCG TAB PO SCH (05:27)
--- NOTE | 2018-11-13 06:34 | NUR ---
Patient resting in bed with no c/o at this time. Continue monitor.
[2018-11-13 06:36] LABS: ANION GAP 11.7 mmol/L (8-16); BLOOD UREA NITROGEN 14 mg/dL (7-26); BUN/CREATININE RATIO 18 (6-25); CALCIUM 8.5 mg/dL (8.4-10.2); CARBON DIOXIDE 21 mmol/L (22-29); CHLORIDE 110 mmol/L (98-107); CREATININE, SERUM 0.78 mg/dL (0.57-1.11); EST GLOMERULAR FILTRATION RATE > 60 ML/MIN (60-); GLUCOSE 148 mg/dL (74-118); POTASSIUM 3.7 mmol/L (3.5-5.1); SODIUM 139 mmol/L (136-145)
[2018-11-13 06:47] LABS: THYROID STIMULATING HORMONE 0.126 uIU/mL (0.350-4.940)
--- NOTE | 2018-11-13 07:07 | NUR ---
RCD PT AT BED PT IS ALERT AND ORIENTED ASSESSMENT DONE PT RESTING ON BED IV PATENT BED LOW AND LOCKED FAMILY AT BED SIDE CALL LIGHT IN REACH
[2018-11-13] MEDS: SUCRALFATE 1 GM TAB PO SCH ×3 (07:30→16:21)
[2018-11-13] MEDS: PANTOPRAZOLE SOD 40 MG TABEC PO SCH ×2 (07:30→16:21)
--- NOTE | 2018-11-13 07:43 | Progress Note ---
DATE: Patient currently is doing a little bit better. Shortness of breath and wheezing has decreased. The patient is getting albuterol and Xopenex treatments every 6 hours. MEDICATIONS: Atorvastatin, Lovenox for DVT prophylaxis. She is on Robitussin, Xopenex, Levaquin, levothyroxine, lisinopril, methylprednisolone, pantoprazole, and also Carafate. OBJECTIVE VITAL SIGNS: Temperature is 97.4, pulse of 63, respirations of 18, blood pressure is 101/43, pulse oximetry 95% on 2 L of O2. HEENT: Normocephalic and atraumatic. Pupils are reactive to light and accommodation. CV: S1 and S2. Regular rate and rhythm. LUNGS: Positive for bilateral inspiratory wheezes all throughout the lung grayson. EXTREMITIES: No clubbing. No cyanosis. No edema. ASSESSMENT: A 60-year-old lady with bronchitis exacerbation, failed outpatient treatment. Will continue the patient on intravenous Levaquin. Continue the patient on intravenous Solu-Medrol 80 mg. Will taper off the dose to twice a day today. Xopenex for wheezing. The patient is on enoxaparin for deep venous thrombosis prophylaxis. Will continue with treatment for about 1-2 days. Since she is feeling better, the patient can be discharged home on albuterol and prednisone in about 1-2 days. Continue same medications. Home medications for hypothyroidism, hypertension and hyperlipidemia. Job#: [id number] CARLOS ENRIQUE
[2018-11-13] MEDS: LISINOPRIL 2.5 MG TAB PO SCH (08:26)
[2018-11-13] MEDS: ENOXAPARIN 30 MG/0.3 ML SYR SC SCH (08:49)
[2018-11-13] MEDS: SODIUM CHLORIDE 0.9% 1000ML 1,000 ML IV SCH ×2 (08:51→16:22)
[2018-11-13] MEDS ORDERED: ATORVASTATIN 20 MG TAB PO SCH (09:00)
--- NOTE | 2018-11-13 12:00 | NUR ---
TALKED TO THE PT REGARDING FLU SHOT SHE SAID NOT TODAY
--- NOTE | 2018-11-13 13:15 | NUR ---
PT C/O CONSTIPATION FOR 3 DAYS AND COUGH PAGED AND NOTIFIED DR RASHEED GOT NEW ORDERS
[2018-11-13] MEDS: LEVOFLOXACIN 500MG/D5W 100ML 100 ML IV SCH (14:15)
[2018-11-13] MEDS: LACTULOSE SYRUP 20 GM/30 ML UDC PO PRN ×2 (14:15→19:19)
--- NOTE | 2018-11-13 15:54 | NUR ---
Nutrition Screen Note RD Recommendation for Physician: -Continue regular diet as ordered -If PO <50%, consider Ensure Enlive BID -Encourage PO and hydration Plan of Care: RD following, monitoring for tolerance and adequacy Nutrition reason for involvement: Nutrition Risk Trigger MST Primary Diagnose(s): bronchitis exacerbation PMH: HLD, reflux esophagitis, hypothyroidism, HTN, low back pain Ht: 59in Wt: 171lb BMI: 34.5kg/m2 IBW: 95lb RD Assessment: (11/13) Chart reviewed. Labs and meds reviewed. 78 yo F, who is admitted for bronchitis. Visited pt in the room. Pt reports fair appetite with ~25-75% recorded PO intake. Pt reports of constipation x4 days; RN Lizet has been notified. No other GI complains noted. Pt denies any chewing or swallowing difficulty. Pt reports of 25lbs weight loss in 3 months. However, her last admission on 08/2018 and 12/2017 showed 162lbs, which is lower than her current weight. RD does not think pt has lost significant amount of weight in the last 3 months. No physical sign of malnutrition with BMI of 34.5kg/m2. Will continue to monitor and follow. Current Diet: regular diet Malnutrition Evaluation (11/13) The patient does not meet criteria for a specified degree of malnutrition at this time. Will re-evaluate at follow-up as appropriate. Diet Education Needs Assessment: Diet education not indicated. Nutrition Care Level: low Signed: Althea Haddad, MS, RD, LD
[2018-11-13] MEDS: PROMETHAZINE/CODEINE 5 ML UDC PO PRN (16:19)
--- NOTE | 2018-11-13 16:55 | NUR ---
Visit made by the Spiritual Care Department Pastoral Visitor, Ann-Marie Toth. PV provided pastoral presence, prayer, hospitality, and supportive listening. Pastoral Visitor informed pt/family of the scope of [employer] [facility] and availability. DARLENE TAYLOR Block Handler Spiritual Care Department O: [phone] Pager: [phone] ([phone] number calling from)
--- NOTE | 2018-11-13 19:15 | NUR ---
RECEIVED PT IN BED SITTING UP. DENIES PAIN AT THIS TIME. NO RESP DISTRESS. N/C 3L ON. CALL LIGHT WITHIN REACH AND INSTRUCTED TO CALL FOR ASSISTANCE.
--- NOTE | 2018-11-13 19:18 | NUR ---
PT RESTING ON BED BED SIDE REPORT GIVEN TO ONCOMING NURSE
[2018-11-13] MEDS: LEVALBUTEROL HCL SOLN NEBU 0.63 MG/3 ML NEB INH SCH (20:00)
[2018-11-13] MEDS: ATORVASTATIN 20 MG TAB PO SCH (20:38)
[2018-11-14] VITALS (7 sets, daily range): BP systolic 128–147; BP diastolic 60–64
[2018-11-14] MEDS: LEVALBUTEROL HCL SOLN NEBU 0.63 MG/3 ML NEB INH SCH ×4 (00:45→20:35)
[2018-11-14] MEDS: LEVOTHYROXINE SODIUM 75 MCG TAB PO SCH (05:53)
[2018-11-14] MEDS: SODIUM CHLORIDE 0.9% 1000ML 1,000 ML IV SCH ×2 (06:06→20:05)
[2018-11-14] MEDS: LACTULOSE SYRUP 20 GM/30 ML UDC PO PRN ×2 (06:20→22:07)
[2018-11-14] MEDS: SUCRALFATE 1 GM TAB PO SCH ×3 (07:30→16:30)
[2018-11-14] MEDS: PANTOPRAZOLE SOD 40 MG TABEC PO SCH ×2 (07:30→16:30)
[2018-11-14] MEDS: ENOXAPARIN 30 MG/0.3 ML SYR SC SCH (09:00)
[2018-11-14] MEDS: LISINOPRIL 2.5 MG TAB PO SCH (09:00)
[2018-11-14] MEDS: METHYLPREDNISOLONE SOD SUCC 40 MG/ML VIAL IV SCH ×2 (09:00→16:42)
[2018-11-14] MEDS: LEVOFLOXACIN 500MG/D5W 100ML 100 ML IV SCH (14:45)
--- NOTE | 2018-11-14 18:42 | NUR ---
PT RESTING ON BED BED SIDE REPORT GIVEN TO ONCOMING NURSE
--- NOTE | 2018-11-14 19:05 | NUR ---
RECEIVED PT IN BED SITTING UP. DENIES PAIN AT THIS TIME. NO RESP DISTRESS. CALL LIGHT WITHIN REACH AND INSTRUCTED TO CALL FOR ASSISTANCE.
[2018-11-14] MEDS: ATORVASTATIN 20 MG TAB PO SCH (21:04)
[2018-11-14] MEDS: PROMETHAZINE/CODEINE 5 ML UDC PO PRN (23:03)
[2018-11-15] VITALS (7 sets, daily range): BP systolic 104–172; BP diastolic 0–80
[2018-11-15] MEDS: LEVALBUTEROL HCL SOLN NEBU 0.63 MG/3 ML NEB INH SCH ×4 (01:35→21:00)
[2018-11-15] MEDS: LEVOTHYROXINE SODIUM 75 MCG TAB PO SCH (05:44)
[2018-11-15] MEDS: SUCRALFATE 1 GM TAB PO SCH ×3 (07:30→16:30)
[2018-11-15] MEDS: PANTOPRAZOLE SOD 40 MG TABEC PO SCH ×2 (07:30→16:30)
[2018-11-15] MEDS: METHYLPREDNISOLONE SOD SUCC 40 MG/ML VIAL IV SCH ×2 (09:00→17:00)
[2018-11-15] MEDS: LISINOPRIL 2.5 MG TAB PO SCH (09:00)
[2018-11-15] MEDS: ENOXAPARIN 30 MG/0.3 ML SYR SC SCH (09:00)
[2018-11-15] MEDS: LEVOFLOXACIN 500MG/D5W 100ML 100 ML IV SCH (14:59)
[2018-11-15] MEDS ORDERED: LEVALBUTEROL HCL SOLN NEBU 0.63 MG/3 ML NEB INH SCH (17:00)
--- NOTE | 2018-11-15 18:30 | NUR ---
PT UP AMBULATING IN SIFUENTES,DENIES PAIN,NO SOB NOTED
[2018-11-15] MEDS: LACTULOSE SYRUP 20 GM/30 ML UDC PO PRN (18:46)
--- NOTE | 2018-11-15 19:05 | NUR ---
RECEIVED PT IN BED SITTING UP. DENIES PAIN AT THIS TIME. NO RESP DISTRESS. CALL LIGHT WITHIN REACH AND INSTRUCTED TO CALL FOR ASSISTANCE.
[2018-11-15] MEDS: ATORVASTATIN 20 MG TAB PO SCH (20:00)
[2018-11-15] MEDS: PROMETHAZINE/CODEINE 5 ML UDC PO PRN (22:45)
--- NOTE | 2018-11-15 22:45 | NUR ---
PT C/O OF COUGH. GIVEN PRN COUGH MED. PT TOLERATED MED WELL. NO SOB OR CHEST PAIN.
[2018-11-16] VITALS: BP 129/59
--- NOTE | 2018-11-16 00:30 | NUR ---
PT IN BED RESTING WELL. NO C/O PAIN OR RESP DISTRESS. CALL LIGHT WITHIN REACH, BED LOCKED IN THE LOWEST POSITION.
[2018-11-16] MEDS: LEVALBUTEROL HCL SOLN NEBU 0.63 MG/3 ML NEB INH SCH ×2 (01:30→07:00)
[2018-11-16 04:00] VITALS: BP 150/66
--- NOTE | 2018-11-16 04:24 | NUR ---
PT IN BED APPEARS TO BE RESTING. NO S/S OF RESP DISTRESS. CALL LIGHT WITHIN REACH, BED LOCKED IN THE LOWEST POSITION.
[2018-11-16] MEDS: LEVOTHYROXINE SODIUM 75 MCG TAB PO SCH (06:40)
--- NOTE | 2018-11-16 07:30 | NUR ---
PT UP IN CHAIR ,DENES PAIN NO DISTRESS NTOED
--- NOTE | 2018-11-16 07:39 | Progress Note ---
DATE: Patient is here for acute exacerbation of bronchitis. Failed outpatient treatment. Patient still continues to cough but better. Shortness of breath is better. She has been getting Xopenex treatments every 6 hours and also cough medications and steroids. The patient is feeling better and reluctant to go home, but feeling better. OBJECTIVE VITAL SIGNS: Temperature is 97.0, pulse 70, respirations 20, blood pressure 150/66, pulse oximetry 92%. HEENT: Normocephalic and atraumatic. Pupils are reactive to light and accommodation. CVS: S1 and S2 normal. Regular rate and rhythm. ABDOMEN: Nontender and nondistended. LUNGS: A few inspiratory wheezes. EXTREMITIES: No clubbing. No cyanosis. No edema. LABORATORY VALUES: From the , white count is normal. Hemoglobin and hematocrit are within normal limits. Chemistries from the : BUN 14, creatinine 0.78. ASSESSMENT 1. Acute bronchitis, failed outpatient treatment. 2. Hypertension. 3. Hypothyroidism. 4. Hyperlipidemia. PLAN: Discontinue the patient's Solu-Medrol. Start her on a tapering dose of steroids. Give her Xopenex on discharge, also cough medicine on discharge. The patient will follow up with her primary care physician. Will continue to monitor the patient's other comorbidities. Will follow up the patient in the clinic in about 1 week's time. Job#: [id number]
[2018-11-16] MEDS: PANTOPRAZOLE SOD 40 MG TABEC PO SCH (08:00)
[2018-11-16] MEDS: SUCRALFATE 1 GM TAB PO SCH (08:00)
[2018-11-16] MEDS: METHYLPREDNISOLONE SOD SUCC 40 MG/ML VIAL IV SCH (09:00)
[2018-11-16] MEDS: ENOXAPARIN 30 MG/0.3 ML SYR SC SCH (09:00)
[2018-11-16] MEDS: LISINOPRIL 2.5 MG TAB PO SCH (09:00)
[2018-11-16] MEDS: PROMETHAZINE/CODEINE 5 ML UDC PO PRN (10:30)
[2018-11-16 14:47] VITALS: BP 145/65
--- NOTE | 2018-11-16 14:50 | NUR ---
PT DISCHARGED HOME ,IV DCD WITHOUT REDNESS OR SWELLING,INSTRUCTIONS AND PRESCRIPTIONS GIVEN COPY ON CHART
== END 2018-11-16 14:49 | disposition home or self-care (01) ==
LOC: MED/SURG3 13:48 → INTOOBSV 13:48
PROVIDERS: ADMIT Family Medicine; ATTEND Family Medicine
DX: J20.9 Acute bronchitis, unspecified (principal); E78.5 Hyperlipidemia, unspecified; K21.0 Gastro-esophageal reflux disease with esophagitis; E03.9 Hypothyroidism, unspecified; I10 Essential (primary) hypertension; M54.9 Dorsalgia, unspecified; Z80.8 Family history of malignant neoplasm of other organs or systems; Z88.2 Allergy status to sulfonamides; Z88.8 Allergy status to other drugs, medicaments and biological substances; E78.00 Pure hypercholesterolemia, unspecified
CPT/HCPCS: 36415 ×2; 71046; 80048; 80053; 81001; 84443; 85025; 87040; 93005; 94640 ×7; G0378 ×5; J1650 ×4; J1956 ×4; J2920 ×5; J7030 ×3; S0164 ×5

== ENCOUNTER 2018-12-10 00:39 | Emergency (ER) | payer MEDICARE ==
[~2018-12-10] VITALS: Ht 149.9 cm; Wt 80.7 kg
--- NOTE | 2018-12-10 02:48 | Diagnostic Imaging Report ---
EXAMINATION: CHEST 2 VIEWS INDICATION: COUGH COMPARISON: 11/12/2018 FINDINGS: PA and lateral views TUBES and LINES: None. LUNGS: Lungs are well inflated. Lungs are clear. There is no evidence of pneumonia or pulmonary edema. PLEURA: No pleural effusion or pneumothorax. HEART AND MEDIASTINUM: The cardiomediastinal silhouette is unremarkable. There are atherosclerotic calcifications within the aorta. BONES AND SOFT TISSUES: No acute osseous lesion. Stable deformity of the right humeral head. Soft tissues are unremarkable. UPPER ABDOMEN: No free air under the diaphragm. IMPRESSION: No acute thoracic abnormality. Signed by: DR. Michael Alfredo MD on 12/10/2018 2:45 AM
[2018-12-10 03:27] VITALS: BP 158/70
== END 2018-12-10 04:05 | disposition home or self-care (01) ==
LOC: ER 00:39
DX: R05 Cough (principal); J42 Unspecified chronic bronchitis; I10 Essential (primary) hypertension; E03.9 Hypothyroidism, unspecified; K21.9 Gastro-esophageal reflux disease without esophagitis; E78.5 Hyperlipidemia, unspecified
CPT/HCPCS: 71046; 87400; 93005; 99284

== ENCOUNTER 2019-04-16 03:46 | Observation (INO) | payer MEDICARE ==
[~2019-04-16] VITALS: Ht 149.9 cm; Wt 78.0 kg
[2019-04-16] MEDS ORDERED: ASPIRIN 81 MG CHEW TAB PO ONE ×2 (04:00→12:15)
[2019-04-16] MEDS ORDERED: NITROGLYCERIN 2% OINT 1 GM PKT TOP ONE (04:15)
[2019-04-16 04:35] LABS: BASOPHILS % 0.3 % (0.0-1.0); EOSINOPHILS # (AUTO) 0.2 (0.0-0.4); EOSINOPHILS % 2.3 % (0.0-6.0); HEMATOCRIT 41.5 % (34.2-44.1); HEMOGLOBIN 13.7 g/dL (12.0-16.0); LYMPHOCYTES # (AUTO) 1.9 (1.0-3.2); MONOCYTES # (AUTO) 0.9 (0.2-0.8); MONOCYTES % 10.3 % (4.4-11.3); NEUTROPHILS # (AUTO) 5.7 (2.1-6.9); NEUTROPHILS % 64.8 % (38.7-80.0); PLATELET COUNT 174 x10e3/uL (140-360); RED BLOOD COUNT 4.15 x10e6/uL (3.6-5.1); RED CELL DISTRIBUTION WIDTH 12.5 % (11.7-14.4)
[2019-04-16 04:49] LABS: INR 0.85; PROTHROMBIN TIME 12.1 seconds (11.9-14.5)
[2019-04-16 04:50] LABS: PARTIAL THROMBOPLASTIN TIME 27.4 seconds (23.8-35.5)
[2019-04-16 04:51] LABS: CLARITY,URINE CLEAR (CLEAR); COLOR,URINE YELLOW (YELLOW)
[2019-04-16 04:52] LABS: BILIRUBIN,URINE NEGATIVE (NEGATIVE); KETONES,URINE NEGATIVE (NEGATIVE); LEUKOCYTE ESTERASE ,URINE NEGATIVE (NEGATIVE); NITRITE,URINE NEGATIVE (NEGATIVE); PROTEIN,URINE DIPSTICK NEGATIVE (NEGATIVE); URINE UROBILINOGEN 0.2 mg/dL (0.2 - 1)
[2019-04-16 04:55] LABS: BLOOD UREA NITROGEN 25 mg/dL (7-26); BUN/CREATININE RATIO 30 (6-25); CALCIUM 9.6 mg/dL (8.4-10.2); CARBON DIOXIDE 27 mmol/L (22-29); CHLORIDE 102 mmol/L (98-107); CREATINE KINASE 70 IU/L (29-168); CREATININE, SERUM 0.83 mg/dL (0.57-1.11); EST GLOMERULAR FILTRATION RATE > 60 ML/MIN (60-); GLUCOSE 115 mg/dL (74-118); SODIUM 138 mmol/L (136-145)
--- NOTE | 2019-04-16 05:09 | Diagnostic Imaging Report ---
EXAMINATION: CHEST SINGLE (PORTABLE) COMPARISON: Chest x-ray 12/10/2018 INDICATION: Shortness of breath ^SOB ^[id number] ^0445 ^Y DISCUSSION: Frontal view of the chest obtained at 0449 hours. HEART AND MEDIASTINUM: The heart is mildly enlarged. The aorta is tortuous LINES: None. LUNGS: The lungs are diffusely hyperinflated suggestive of COPD. Avascular markings are normal. No interstitial thickening. No infiltrates. PLEURA: No pleural effusion or pneumothorax. BONES AND SOFT TISSUES: Healed fracture deformity of the right humerus. No new osseous findings. The soft tissues are normal. IMPRESSION: Pulmonary hyperinflation consistent with COPD. Mild cardiomegaly without vascular congestion. Signed by: Dr. Shelli Young MD on 04/16/2019 5:06 AM
[2019-04-16 05:14] LABS: BACTERIA,URINE FEW /HPF; EPITHELIAL CELLS,URINE FEW /LPF; WBC,URINE (MAN) 0-5 /HPF (0-5)
[2019-04-16] MEDS ORDERED: SIMETHICONE 40 MG/0.6 ML BTL PO ONE (08:30)
[2019-04-16] MEDS ORDERED: DONNATAL/LIDOCAINE/MAALOX 30 ML SUSP PO ONE (08:30)
[2019-04-16 10:49] LABS: CREATINE KINASE MB 2.4 ng/mL (0-5.0)
--- NOTE | 2019-04-16 11:50 | NUR ---
rec'd pt in walking rounds w/joaquin for continuity of care
--- NOTE | 2019-04-16 13:31 | NUR ---
3rd set of cardiac markers drawn and sent off to the lab.
--- NOTE | 2019-04-16 13:35 | NUR ---
updated pt/family on pending admit to hospital/poc/orders
[2019-04-16 14:07] LABS: CREATINE KINASE MB 2.3 ng/mL (0-5.0)
[2019-04-16 14:57] VITALS: BP 148/64
[2019-04-16 15:11] VITALS: BP 148/64
--- NOTE | 2019-04-16 16:11 | NUR ---
Received pt from via accompanied by pt's mother. Pt is AAOx3 in no acute distress noted, IVF infusing well to RAC. Redness, warmth and swelling noted to right lower leg with scattered scratch fajardo and scabs. Pt instructed to call for assistance, bed in lowest position and locked and call light is within reach. Addendum: 04/16/19 at 1835 by Kristie Stoner RN wrong pt.
--- NOTE | 2019-04-16 17:50 | NUR ---
Dr Filiberto Dillon notified of patient's admission to [address] Grimes with cardiology rounded on pt states pt can go home and will see pt for follow up in 2 weeks.
--- NOTE | 2019-04-16 19:06 | NUR ---
Bedside report and walking rounds complete. Pt A&O and in no apparent distress. Pt spouse at bedside. Pt on room air and tele. Pt has no complaints of pain. All safety measures ensured and pt call simon near. Pt encouraged to use call simon for assistance. Pt granddaughter to stay overnight.
[2019-04-16 20:00] VITALS: BP 148/67
[2019-04-16] MEDS ORDERED: SUCRALFATE 1 GM/10 ML SUSP PO ONE (20:00)
[2019-04-16] MEDS ORDERED: ATORVASTATIN 20 MG TAB PO SCH (21:00)
[2019-04-17] VITALS: BP 138/62
--- NOTE | 2019-04-17 00:06 | Consultation ---
DATE OF CONSULTATION: Cardiology Consultation REASON FOR CONSULTATION: Chest pain. HISTORY OF PRESENT ILLNESS: This is a 78-year-old woman with a history of gastroesophageal reflux disease, gastritis, hyperlipidemia, hypothyroidism, and hypertension, who presented to the emergency department with epigastric discomfort with radiation to her chest. The patient states that she had a sandwich and ate a watermelon very late, then all of sudden became very nauseous and threw up, had severe epigastric pain with radiation into her chest, associated with some shortness of breath and diarrhea. She also previously was placed on Celebrex, which also gave her similar symptoms. She denies any typical exertional angina, palpitations, or exertional dyspnea. REVIEW OF SYSTEMS: A 12-point review of system was conducted, is negative otherwise as stated above in the HPI. PAST MEDICAL HISTORY: As stated above in the HPI. PAST SURGICAL HISTORY: None recent. PAST FAMILY HISTORY: No premature coronary artery disease or sudden cardiac . SOCIAL HISTORY: No illicit drug, alcohol, or tobacco use. ALLERGIES: SULFA AND TRIMETHOPRIM. MEDICATIONS: See medications reconciliation form. PHYSICAL EXAMINATION: VITAL SIGNS: She is afebrile, heart rate is 61, respirations are 17, blood pressure is 133/63, and oxygen saturation 100% on room air. GENERAL: Well-appearing, well-built, and in no apparent distress. Alert and oriented x3. HEAD: Normocephalic, atraumatic. EYES: Extraocular muscles are intact. Conjunctivae are clear. NECK: No JVD. No bruits. CARDIOVASCULAR: She has regular rate and rhythm. LUNGS: Clear to auscultation. ABDOMEN: Soft, nontender, and nondistended. Normoactive bowel sounds. EXTREMITIES: No clubbing, cyanosis, or edema. VASCULAR: 2+ pulses. SKIN: Warm, dry, and intact. NEUROLOGIC: No focal deficits noted. LABORATORY DATA: Reviewed. Troponins negative x3. BNP is 49. IMAGING DATA: Chest x-ray shows pulmonary hyperinflation. A 2D echocardiogram showed normal left ventricular systolic function with an estimated ejection fraction of 55% to 60% with mild left ventricular hypertrophy. A 12-lead electrocardiogram showed sinus bradycardia with nonspecific ST-T wave abnormalities. IMPRESSION: 1. Precordial pain. 2. Epigastric pain. 3. Dyspepsia. 4. Nausea and vomiting. 5. Hypertension. 6. Hyperlipidemia. 7. Obesity. RECOMMENDATIONS: The patient ruled out for acute myocardial infarction with three sets of negative cardiac enzymes and a nonspecific 12-lead electrocardiogram. Her 2D echocardiogram shows preserved left ventricular systolic function with mild LVH. Continue current cardiovascular medications. Her symptoms are likely exacerbated by her chronic dyspepsia and gastroesophageal reflux disease. Recommend outpatient Gastroenterology consultation. I can see the patient as an outpatient for stress testing. She is stable for discharge from a cardiovascular standpoint. Jordy Grimes DO BM/MODL /[id number]
--- NOTE | 2019-04-17 02:07 | History and Physical ---
CHIEF COMPLAINT: This is a 78-year-old female who comes in with chest pain. HISTORY PRESENTING ILLNESS: Ms. Laquita Sinclair, with a history of hyperlipidemia, history of hypertension, history of reflux esophagitis, who was in her usual state of health until the patient started with abdominal pain and also had a late dinner. The patient started to have abdominal pain, which progressed to chest pain. The patient in the morning advanced with chest pain and the patient was admitted to the hospital for slightly elevated troponin. PAST MEDICAL HISTORY: History of hyperlipidemia, history of hypertension, history of reflux esophagitis, and history of osteoarthritis too. Incidentally, the patient also has been taking Celebrex which has been started recently for her osteoarthritis. The patient has been continuously taking Celebrex and the patient has nausea ever since the Celebrex was started. PAST SURGICAL HISTORY: History of right knee surgery, and history of cataract removal. FAMILY HISTORY: Asthma, history of cervical cancer in mother and father with bone cancer, hypertension and hyperlipidemia in the family too. REVIEW OF SYSTEMS: Positive for chest pain. Positive for shortness of breath. Positive nausea. No vomiting. No diarrhea. No constipation. No rectal bleeding. No hematochezia. No hematemesis. No melena either. No diplopia. No blurry vision. No headaches. PHYSICAL EXAMINATION: VITAL SIGNS: Temperature is 98.3, pulse of 96, respirations of 18, pulse oximeter of 96% on room air. HEENT: Normocephalic, atraumatic. CVS: S1 and S2 normal. Regular rate and rhythm. ABDOMEN: Tenderness in the epigastric area. EXTREMITIES: No clubbing, no cyanosis, no edema. LABORATORY VALUES: White count is 8.76, hemoglobin of 13.7, hematocrit 41.5. Chemistry shows sodium 138, potassium 4.0, BUN of 25, creatinine 0.83. Troponin's have been trended to be negative. BNP was 49.3. The patient's Coags were normal. IMAGING STUDIES: Chest x-ray shows pulmonary hyperinflation consistent with COPD. Mild cardiomegaly with vascular congestion. ASSESSMENT: 1. Chest pain, ruled out coronary syndrome. The patient's echocardiogram has been done, which shows ejection fraction of 55-60%. Concentric left ventricular hypertrophy. 2. Hypertension. 3. Probable gastritis. 4. Hypothyroidism. PLAN: Plan is to continue with medication. Carafate and pantoprazole will be restarted. The patient can be discharged in the morning. Further recommendation per clinical course. We will continue to monitor the patient and keep her observation at this time. MD SILVESTRE CurielJ/MODL /[id number]
[2019-04-17 04:00] VITALS: BP 126/60
[2019-04-17 05:56] LABS: CHOL/HDL RATIO 2.2 (3.0-3.6)
[2019-04-17] MEDS ORDERED: LEVOTHYROXINE SODIUM 75 MCG TAB PO SCH (06:00)
--- NOTE | 2019-04-17 07:05 | NUR ---
Walking rounds done. Patient resting in bed, appears comfortable. No complaints voiced at this time. POC discussed. Patient voiced she will be going home today. Awaiting MD. Call simon within reach.
--- NOTE | 2019-04-17 07:09 | NUR ---
Bedside report and walking rounds complete. Pt resting in bed and in no apparent distress. All safety measures ensured.
[2019-04-17] MEDS ORDERED: PANTOPRAZOLE SOD 40 MG TABEC PO SCH (07:30)
[2019-04-17] MEDS ORDERED: PANTOPRAZOLE SO40 MG PO (07:55)
[2019-04-17] MEDS ORDERED: CARAFATE1 GM/10 ML PO (07:55)
[2019-04-17] MEDS ORDERED: GABAPENTIN100 MG PO (07:56)
[2019-04-17 08:33] VITALS: BP 138/63
[2019-04-17] MEDS ORDERED: ESOMEPRAZOLE MAG TRIHYDRATE PO SCH (09:00)
[2019-04-17] MEDS ORDERED: SUCRALFATE 1 GM TAB PO SCH (09:00)
[2019-04-17] MEDS ORDERED: LISINOPRIL 2.5 MG TAB PO SCH (09:00)
--- NOTE | 2019-04-17 09:00 | NUR ---
Patient discharged home with written instructions and prescriptions. IV dc'd, cath intact and small dressing applied. she verbalized understanding. Daughter provided ride home
--- NOTE | 2019-04-17 09:24 | Progress Note ---
DATE: SUBJECTIVE: The patient is a 78-year-old female, who came in with chest pain. The patient has been ruled out. Troponins have been negative. No more chest pains. The patient's abdominal pain is better with the Carafate and Protonix. The patient is currently on atorvastatin, levothyroxine, lisinopril, pantoprazole, and Carafate. Currently asymptomatic again. OBJECTIVE: VITAL SIGNS: Temperature is 97.7, pulse of 71, respirations of 18, blood pressure is 126/68, and pulse oximetry of 97%. HEENT: Normocephalic, atraumatic. Pupils are reactive to light and accommodation. CVS: S1, S2 normal. Regular rate and rhythm. ABDOMEN: Nontender, nondistended. EXTREMITIES: No clubbing. No cyanosis. No edema. LABORATORY DATA: The patient's white count from yesterday normal. Chemistries, troponins are negative. HDL is 92, LDL of 88. ASSESSMENT: 1. Chest pain, ruled out acute coronary syndrome. 2. Gastritis. Carafate and pantoprazole have helped the patient. We will discharge the patient on those. 3. Arthritis. We will discontinue Celebrex. The patient will be put on gabapentin 100 mg 3 times a day. Follow up with primary care physician. Further recommendation on an outpatient basis. Will need a GI followup as an outpatient. MD ZACH Curiel/MODL /[id number]
== END 2019-04-17 09:00 | disposition home or self-care (01) ==
LOC: ER 03:46 → ERHOLD 12:03 → IMCU 14:46
PROVIDERS: ADMIT Family Medicine; ATTEND Family Medicine
DX: R07.2 Precordial pain (principal); I10 Essential (primary) hypertension; E03.9 Hypothyroidism, unspecified; K21.0 Gastro-esophageal reflux disease with esophagitis; E78.5 Hyperlipidemia, unspecified; M19.90 Unspecified osteoarthritis, unspecified site; Z82.5 Family history of asthma and other chronic lower respiratory diseases; Z80.8 Family history of malignant neoplasm of other organs or systems; R10.13 Epigastric pain; E66.9 Obesity, unspecified; Z88.2 Allergy status to sulfonamides; Z88.8 Allergy status to other drugs, medicaments and biological substances; K29.70 Gastritis, unspecified, without bleeding; Z68.34 Body mass index [BMI] 34.0-34.9, adult
CPT/HCPCS: 36415 ×2; 71045; 80048; 80061; 81001; 82550; 82553; 83880; 84484; 85025; 85379; 85610; 85730; 93005; 93306; 99284; G0378 ×2; S0164

== ENCOUNTER 2019-10-03 01:41 | Emergency (ER) | payer MEDICARE ==
[~2019-10-03] VITALS: Ht 149.9 cm; Wt 78.0 kg
[~2019-10-03 01:41] MED LIST changes: +CARAFATE1 GM/10 ML PO; +GABAPENTIN100 MG PO; +PANTOPRAZOLE SO40 MG PO
[2019-10-03] MEDS ORDERED: ASPIRIN 81 MG CHEW TAB PO ONE (02:00)
[2019-10-03] MEDS ORDERED: LORAZEPAM 1 MG TAB PO ONE (02:00)
[2019-10-03 02:42] LABS: BASOPHILS % 0.3 % (0.0-1.0); EOSINOPHILS # (AUTO) 0.1 (0.0-0.4); EOSINOPHILS % 0.8 % (0.0-6.0); HEMATOCRIT 41.9 % (34.2-44.1); HEMOGLOBIN 13.5 g/dL (12.0-16.0); LYMPHOCYTES # (AUTO) 2.1 (1.0-3.2); LYMPHOCYTES % 20.6 % (18.0-39.1); MEAN CORPUSCULAR HEMOGLOBIN 31.8 pg (28-32); MEAN CORPUSCULAR HGB CONC 32.2 g/dL (31-35); MEAN CORPUSCULAR VOLUME 98.8 fL (81-99); MONOCYTES # (AUTO) 0.8 (0.2-0.8); NEUTROPHILS % 69.9 % (38.7-80.0); PLATELET COUNT 186 x10e3/uL (140-360); RED BLOOD COUNT 4.24 x10e6/uL (3.6-5.1); RED CELL DISTRIBUTION WIDTH 12.8 % (11.7-14.4)
[2019-10-03 02:49] LABS: BILIRUBIN,URINE NEGATIVE (NEGATIVE); CLARITY,URINE CLEAR (CLEAR); COLOR,URINE YELLOW (YELLOW); KETONES,URINE NEGATIVE (NEGATIVE); LEUKOCYTE ESTERASE ,URINE NEGATIVE (NEGATIVE); NITRITE,URINE NEGATIVE (NEGATIVE); PROTEIN,URINE DIPSTICK NEGATIVE (NEGATIVE); URINE UROBILINOGEN 0.2 mg/dL (0.2 - 1)
[2019-10-03 02:53] LABS: ALANINE AMINOTRANSFERASE 13 IU/L (0-55); ALBUMIN 3.7 g/dL (3.5-5.0); ALBUMIN/GLOBULIN RATIO 1.2 (0.8-2.0); ALKALINE PHOSPHATASE 71 IU/L (40-150); ANION GAP 13.9 mmol/L (8-16); BLOOD UREA NITROGEN 20 mg/dL (7-26); BUN/CREATININE RATIO 19 (6-25); CALCIUM 9.6 mg/dL (8.4-10.2); CARBON DIOXIDE 24 mmol/L (22-29); CHLORIDE 107 mmol/L (98-107); CREATINE KINASE 64 IU/L (29-168); CREATININE, SERUM 1.06 mg/dL (0.57-1.11); EST GLOMERULAR FILTRATION RATE 50 ML/MIN (60-); GLUCOSE 122 mg/dL (74-118); POTASSIUM 3.9 mmol/L (3.5-5.1); SODIUM 141 mmol/L (136-145)
--- NOTE | 2019-10-03 03:07 | Diagnostic Imaging Report ---
EXAMINATION: CHEST SINGLE (PORTABLE) COMPARISON: Chest x-ray 04/16/2019 INDICATION: ^chest pain ^[id number] ^0232 DISCUSSION: Frontal view of the chest obtained at 0238 hours. HEART AND MEDIASTINUM: The cardiomediastinal silhouette is unremarkable. LINES: None. LUNGS: The lungs are diffusely hyperinflated. Pulmonary vascular markings are normal. No infiltrates or interstitial thickening. PLEURA: No pleural effusion or pneumothorax. BONES AND SOFT TISSUES: Healed fracture deformity of the proximal right humerus is stable. No new osseous findings. The soft tissues are normal. IMPRESSION: cardia Stable pulmonary hyperinflation. No acute cardiopulmonary process. Signed by: Dr. Shelli Young MD on 10/03/2019 3:03 AM
[2019-10-03 04:11] LABS: BACTERIA,URINE MODERATE /HPF; EPITHELIAL CELLS,URINE FEW /LPF
[2019-10-03 04:14] VITALS: BP 133/46
== END 2019-10-03 04:34 | disposition home or self-care (01) ==
LOC: ER 01:41
DX: R07.2 Precordial pain (principal); F41.1 Generalized anxiety disorder; I10 Essential (primary) hypertension; E78.5 Hyperlipidemia, unspecified; K21.9 Gastro-esophageal reflux disease without esophagitis; E03.9 Hypothyroidism, unspecified
CPT/HCPCS: 36415; 71045; 80053; 81001; 82550; 82553; 84484; 85025; 93005; 99284

== ENCOUNTER 2020-01-06 18:09 | Emergency (ER) | payer MEDICARE, OTHER ==
[~2020-01-06] VITALS: Ht 149.9 cm; Wt 78.0 kg
[2020-01-06] MEDS ORDERED: TRAMADOL HCL 50 MG TAB PO ONE (18:45)
--- NOTE | 2020-01-06 20:10 | Diagnostic Imaging Report ---
EXAM: HIP RIGHT 2-3 VW (+/- PELVIS) DATE: 01/06/2020 6:42 PM INDICATION: ^r/o fx COMPARISON: None FINDINGS: AP pelvis and oblique views of the right hip show no displaced fracture or dislocation. The hip joint spaces are maintained. Mild degenerative changes are seen at the hips. Vascular calcifications are noted. IMPRESSION: No acute bony abnormality. Signed by: Dr. Orlando Hobbs M.D. on 01/06/2020 8:07 PM
--- NOTE | 2020-01-06 20:12 | Diagnostic Imaging Report ---
EXAM: KNEE RIGHT THREE VIEWS DATE: 01/06/2020 6:42 PM INDICATION: ^r/o fx ^[id number] ^[id number] COMPARISON: None FINDINGS: 3 views of the right knee show no displaced fracture or dislocation. 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 Vascular calcification is seen in the femoral, popliteal and tibial areas. IMPRESSION: No acute bony abnormality. Moderate degenerative changes are seen with moderately severe narrowing of the medial joint space. Signed by: Dr. Orlando Hobbs M.D. on 01/06/2020 8:09 PM
--- NOTE | 2020-01-06 20:13 | Diagnostic Imaging Report ---
EXAM: LOWER LEG RIGHT DATE: 01/06/2020 6:42 PM INDICATION: ^r/o fx ^[id number] ^[id number] COMPARISON: None FINDINGS: Frontal and lateral views of the right tibia and fibula show no displaced fracture or dislocation. Vascular calcifications are seen in the calf. Degenerative changes are seen at the right knee. A plantar calcaneal enthesophyte is present. IMPRESSION: No acute bony abnormality. Signed by: Dr. Orlando Hobbs M.D. on 01/06/2020 8:10 PM
--- NOTE | 2020-01-06 20:14 | Diagnostic Imaging Report ---
EXAM: ANKLE 3 + VIEWS RIGHT DATE: 01/06/2020 6:42 PM INDICATION: ^r/o fx ^[id number] ^[id number] COMPARISON: None FINDINGS: 3 views of the right ankle show no displaced fracture or dislocation. The ankle mortise is symmetrically marginated. Vascular calcifications are seen in the lower calf extending into the foot. Plantar and posterior calcaneal enthesophytes are present. There is mild soft tissue swelling over the medial malleolus. IMPRESSION: No acute bony abnormality. Signed by: Dr. Orlando Hobbs M.D. on 01/06/2020 8:12 PM
--- NOTE | 2020-01-06 20:16 | Diagnostic Imaging Report ---
EXAM: FOOT RIGHT COMPLETE DATE: 01/06/2020 6:42 PM INDICATION: ^r/o fx ^[id number] ^[id number] COMPARISON: None FINDINGS: 3 views of the right foot show no displaced fracture or dislocation. There is apparent bandage overlying the proximal foot and ankle which obscures some bony detail. Plantar and posterior calcaneal enthesophytes are noted. There are extensive vascular calcifications in the lower calf, crossing the ankle into the foot. IMPRESSION: No acute bony abnormality. Signed by: Dr. Orlando Hobbs M.D. on 01/06/2020 8:13 PM
== END 2020-01-06 21:19 | disposition home or self-care (01) ==
LOC: ER 18:09
DX: S70.01XA Contusion of right hip, initial encounter (principal); S80.01XA Contusion of right knee, initial encounter; S80.11XA Contusion of right lower leg, initial encounter; S90.01XA Contusion of right ankle, initial encounter; S90.31XA Contusion of right foot, initial encounter; W01.0XXA Fall on same level from slipping, tripping and stumbling without subsequent striking against object, initial encounter; Y92.008 Other place in unspecified non-institutional (private) residence as the place of occurrence of the external cause; I10 Essential (primary) hypertension; E78.5 Hyperlipidemia, unspecified; E03.9 Hypothyroidism, unspecified; K21.9 Gastro-esophageal reflux disease without esophagitis; Z87.442 Personal history of urinary calculi
CPT/HCPCS: 99284

== ENCOUNTER → 2020-12-12 | Outpatient (CLI) | payer MEDICARE | LOC: US 14:47 | PROVIDERS: ATTEND Family Medicine | DX: L04.1 Acute lymphadenitis of trunk (principal) | CPT/HCPCS: 76882 ==

== ENCOUNTER → 2021-10-25 | Outpatient (CLI) | payer MEDICARE | LOC: RAD 11:49 | PROVIDERS: ATTEND Counselor | DX: M25.511 Pain in right shoulder (principal) ==

== ENCOUNTER 2024-06-26 22:33 | Emergency (ER) | payer MEDICARE ==
[~2024-06-26] VITALS: Ht 149.9 cm; Wt 69.9 kg
[~2024-06-26 22:33] MED LIST changes: +ATORVASTATIN CA20 MG PO; +LEVOTHYROXINE75 MCG PO; +LOSARTAN POTAS100 MG PO; +MECLIZINE HCL12.5 MG PO
[2024-06-26 23:20] VITALS: PULSE 80; RESP 18; TEMP 98
[2024-06-27] MEDS: FAMOTIDINE 20 MG/2 ML VIAL IV STA (00:03)
[2024-06-27] MEDS: SODIUM CHLORIDE 0.9% 500ML 500 ML IV STA ×2 (00:03→03:36)
[2024-06-27 00:48] VITALS: BP 120/97; PULSE 80; RESP 18; TEMP 98; O2SAT 98
== END 2024-06-27 00:48 | disposition home or self-care (01) ==
LOC: FSED 22:51
DX: R00.2 Palpitations (principal); R42 Dizziness and giddiness; I10 Essential (primary) hypertension; E78.5 Hyperlipidemia, unspecified; E03.9 Hypothyroidism, unspecified; E78.00 Pure hypercholesterolemia, unspecified; K21.9 Gastro-esophageal reflux disease without esophagitis; Z87.442 Personal history of urinary calculi
CPT/HCPCS: 80053; 81003; 84484; 85025; 85379; 93005; 96374; 99283; J7040

== ENCOUNTER → 2025-01-25 | Outpatient (REF) | payer MEDICARE | LOC: US 13:59 | PROVIDERS: ATTEND Nurse Practitioner Primary Care | DX: N18.32 Chronic kidney disease, stage 3b (principal) | CPT/HCPCS: 76770 ==

== ENCOUNTER → 2025-06-29 | Outpatient (REF) | payer MEDICARE | LOC: DX 12:54 | PROVIDERS: ATTEND Family Medicine | DX: M81.0 Age-related osteoporosis without current pathological fracture (principal) | CPT/HCPCS: 77080 ==